=== PATIENT | male | born 1960 | race Caucasian/White ===

== ENCOUNTER → 2021-07-05 09:24 | Outpatient (CLI) | payer OTHER, SELFPAY ==
[2021-07-05 12:23] LABS: Absolute Lymphocyte Count 1.06 X10^3/uL (0.83-4.51); Absolute Neutrophil Count 2.2 X10^3/uL (2.0-7.7); Basophil# 0.03 X10^3/uL; Basophil% 0.7 % (0-1); Eosinophil# 0.06 X10^3/uL; Eosinophils% 1.5 % (0-5); Hematocrit 46.2 % (40-54); Hemoglobin 14.8 g/dL (13.0-16.5); Lymphocyte # 1.06 X10^3/ul (0.83-4.51); Mean Corpuscular Hgb 27.9 pg (27.0-32.0); Mean Platelet Vol. 10.6 fl (6.2-12.0); Monocyte# 0.72 X10^3/uL; Monocyte% 17.7 % (0-10); NRBC Flagged by Analyzer 0 % (0-5); Neutrophil # 2.19 X10^3/uL (2.7-7.7); Neutrophil % 53.9 % (47-70); Platelet Count 187 K/mm3 (150-450); RBC Distribution Width CV 12.8 % (11.6-14.6); Red Blood Count 5.31 M/mm3 (4.6-6.2); White Blood Count 4.1 K/mm3 (4.4-11.0)
[2021-07-05 12:29] LABS: Color, Urine Yellow (Yellow); Glucose, Dipstick Normal (Normal); Ketone-Dipstick Negative (Negative); Leukocyte Esterase-Dipstick Negative /ul (Negative); Nitrite-Dipstick Negative (Negative); Occult Blood-Urine 25 /ul (Negative); Protein-Dipstick 15 mg/dl (Negative); Specific Gravity, Urine 1.025 (1.002-1.030); Urine Bilirubin Dipstick Negative (Negative); Urine Clarity Sl. Cloudy (Clear); Urine Urobilinogen Normal (Normal)
[2021-07-05 12:45] LABS: Vitamin D,25 Hydroxy 21.7 ng/mL
[2021-07-05 12:51] LABS: ALB/GLOB Ratio 0.9 RATIO (0.9-2.4); AST(SGOT) 17 U/L (15-37); Alanine Aminotransfer ALT/SGPT 28 U/L (16-61); Albumin, Serum 3.3 g/dL (3.2-5.0); Alkaline Phosphatase 88 U/L (45-117); Anion Gap 4 (5-15); BUN 15 mg/dL (7-18); BUN/Creat Ratio 13.5 RATIO (10-20); Calcium,Total 9.6 mg/dL (8.5-10.1); Chloride 106 mmol/L (98-107); Cholesterol 152 mg/dL (200); Creatinine, Serum 1.11 mg/dL (0.70-1.30); EST Glomerular Filtration Rate 71 mL/min (>60); Est Glom Filt Rate - Afr Amer 86 mL/min (>60); Globulin 3.7 g/dL (2.2-4.2); Glucose 92 mg/dL (74-106); High Density Lipoprotein 35 mg/dL; Potassium 3.8 mmol/L (3.5-5.1); Sodium Level 139 mmol/L (136-145); Triglycerides 108 mg/dL; Very Low Density Lipoprotein 22 mg/dL (5-40)
[2021-07-05 13:37] LABS: BNP,B-Type NATRIURETIC PEPTIDE 128.5 pg/mL (0-100)
[2021-07-07 17:07] LABS: Red Blood Cell Count Test/G6PD 5.22 x10E6/uL (4.14-5.80)
[2021-07-08 17:50] LABS: G6PD Quant Test 257 (127-427)
== END ==
PROVIDERS: PCP Family Medicine; Referring Provider Nurse Practitioner Family; Visit Provider Nurse Practitioner Family
DX: M62.81 Muscle weakness (generalized) (principal); R53.82 Chronic fatigue, unspecified; C18.9 Malignant neoplasm of colon, unspecified
CPT/HCPCS: 36415; 80053; 80061; 81002; 82306; 82955; 83880; 85025

== ENCOUNTER 2023-02-07 19:33 | Emergency (ER) | payer OTHER, SELFPAY ==
[2023-02-07 19:34] VITALS: BP 146/103; PULSE 44; RESP 16; TEMP 36.1; O2SAT 97
[2023-02-07 19:37] VITALS: BMI 24.3
--- NOTE | 2023-02-07 20:05 | CT_ITS ---
STUDY: CT ABDOMEN AND PELVIS WITH CONTRAST REASON FOR EXAM: Male, 62 years old. right sided abd pain. Colon ca hx w/ mets RADIATION DOSAGE (If Supplied By Facility): CTDIvol = ( 15.73 ) mGy, DLP = ( 840.09 ) mGycm TECHNIQUE: Transaxial images were obtained from the dome of the diaphragm to the symphysis pubis without oral contrast. IV 100mL Isovue-300 was administered. Sagittal and coronal images were reconstructed. Individualized dose optimization techniques were used for this CT. COMPARISON: None. FINDINGS: Large bilateral pleural effusions with bibasilar atelectasis. The visualized portions of the heart are within normal limits. Enlarged lymph nodes in the right epicardial fat pad collectively measuring 2 x 6 cm consistent with metastatic lymphadenopathy. 1 cm mass of decreased attenuation within the dome of the liver which may represent a cyst or a solid mass. The gallbladder is contracted. 2 lesions of decreased attenuation within the spleen measuring 2.5 and 3.0 cm in diameter worrisome for metastatic disease. Normal pancreas. Normal bilateral adrenal glands. Normal right kidney. Normal left kidney. Multiple small renal cysts bilaterally. Normal visualized stomach. Normal small intestine. Suture line in the colon near the splenic flexure. There are surgical clips in the region of the appendix consistent with a prior appendectomy. Normal abdominal aorta. Normal inferior vena cava. Confluent retroperitoneal lymphadenopathy consistent with metastatic disease. At the level of celiac axis is measures 8 x 10 cm. At the level of the renal arteries this measures 4 x 11 cm. At the level aortic bifurcation this measures 4 x 8 cm. Furthermore, there is a 2.0 x 4.5 cm bilobed mass of soft tissue attenuation in the rectovesical space just superior to the seminal vessels consistent with serosal implant. Another 3.0 x 4.5 cm soft tissue mass is seen anteriorly in the abdomen in the midline just inferior to the umbilicus worrisome for omental carcinomatosis. Normal urinary bladder. Normal abdominal wall. Mild levoscoliosis lumbar spine with degenerative disc disease. CT/Abdomen/Pelvis W IV Cont ONLY IMPRESSION: 1. Large bilateral pleural effusions with bibasilar atelectasis. 2. Suture line in the colon near the splenic flexure consistent with prior resection. 3. 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 Electronically Signed: Zhou Rosales MD at 22:51 EDT ,
--- NOTE | 2023-02-07 20:06 | ED.VIS.GI ---
HPI <Dr. Malick Cee MD - Last Filed: 02/07/23 22:27> HPI - GI History of Present Illness Chief Complaint: Abd Pain Detail of Chief Complaint: Right-sided abdominal pain for 7 weeks. Informant: patient and spouse/S.O. 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 He had a MediPort and but then it became infected and had that removed 2 to 3 weeks ago while visiting [facility] in [place]. He also has a known history of A-fib and is on Xarelto. States he had abdominal pain for at least 7 weeks. It is pretty constant. He denies any nausea, vomiting, diarrhea or or fever. No dysuria. Also states the pains going into his back. Initially was treated by cancer center in [place]. But he said he is cannot in a waiting period with them. Prior similar symptoms: Yes Recent Illness/Hospitalization: Yes PFSH <Dr. Malick Cee MD - Last Filed: 02/07/23 22:27> PFS Home Medications oxycodone 10 mg tablet,crush resistant,extended release 12 hr 10 mg PO BID 10 days #20 tabs 02/07/23 [Rx Last Taken Unknown] Allergy/AdvReac Type Severity Reaction Status Date / Time morphine AdvReac Nausea/Vom/ Verified 02/07/23 19:34 Diarrhea Social History Smoking Status: Never smoker ROS <Dr. Malick Cee MD - Last Filed: 02/07/23 22:27> ROS ED ROS Narrative Right-sided abdominal pain. Review of Systems ROS Unobtainable: Denies due to encephalopathy Constitutional Constitutional ED: Denies chills or fever(s) ENT ENT ED: Denies ear pain Cardiovascular Cardiovascular: Denies chest pain Respiratory/Chest Respiratory/Chest: Denies cough or dyspnea Gastrointestinal Gastrointestinal: Reports abdominal pain; Denies constipation, diarrhea, melena, nausea or vomiting Genitourinary Genitourinary ED: Denies dysuria or hematuria Musculoskeletal Musculoskeletal: Reports back pain; Denies arthralgias Integumentary Denies abscess Neurologic Neurologic: Denies headache(s) Psychiatric Psychiatric: Denies anxiety Endocrine Endocrinology: Denies polydipsia Hematologic/Lymphatic Hematologic/Lymphatic: Denies easy bleeding Allergic/Immunologic Allergic/Immunologic ED: Denies mouth swelling EXAM <Dr. Malick Cee MD - Last Filed: 02/07/23 22:27> Physical Exam Narrative Exam Narrative: This is a frail male no acute distress. Vital signs stable afebrile. at bedside. HEENT exam unremarkable. Moist his membranes. Poor dentition. Neck nontender. Lungs clear to auscultation bilaterally. Heart bradycardic rate about 50 no murmur. Chest wall nontender. Abdomen soft nondistended. Firm right upper quadrant abdominal exam that is tender consistent with a mass. No obstruction. Left upper and lower quadrant unremarkable. No McBurney's point tenderness. Moving all 4 extremities. Nontender. No edema. He is thin. Back nontender. Neurologically is awake and alert with no focal motor deficits. Const Vital Signs: 02/07/23 19:34 02/07/23 21:33 Temperature 97.0 F L Temperature Source Temporal Pulse Rate 44 L 76 Respiratory Rate 16 16 Blood Pressure 146/103 H 114/76 Blood Pressure Mean 117 88 Pulse Ox 97 96 Oxygen Delivery Method Room Air Room Air Positive well nourished and well developed; Negative for obese, cachectic, contractures or unkempt General Appearance ED: well developed and NAD; Negative for unkempt, cachectic, contractures or pallor Nutritional Appearance: Negative for cachectic or obese HEENT Reports moist mucous membranes normocephalic and atraumatic; Negative for trauma or tenderness Eyes PERRL and EOMs intact bilaterally General Eye ED: Negative for pale conjunctiva or scleral icterus Neck no lymphadenopathy, supple and no JVD General: Negative for tenderness Carotids: Negative for other Lymph Lymphatic: Negative for other Resp normal respiratory effort and clear to auscultation bilaterally Effort and Inspection: Negative for respiratory distress Auscultation: Negative for rales, rhonchi or wheezes Cardio regular rhythm, S1 normal heart sound, S2 normal heart sound and no murmurs; Negative for regular rate Rate: bradycardia Rhythm: Negative for abnormal rhythm GI non-distended; Negative for non-tender or no masses GI Narrative: Right upper quadrant tenderness with firmness consistent with a mass. There is no distention. No pulsatile mass. Left upper and left lower quadrants are unremarkable. No McBurney's point tenderness. Inspection: Negative for abdominal distention Auscultation: normoactive bowel sounds Palpation: soft, tender, hepatomegaly and mass; Negative for guarding, rigid, hernia, pulsatile mass or rebound tenderness present Back/Spine no CVA tenderness General Back: Negative for CVA tenderness Cervical Spine: Negative for cervical spine tenderness Thoracic Spine / Upper Back: Negative for thoracic spinal tenderness Lumbar Spine / Lower Back: Negative for lumbar spinal tenderness Extremity full ROM General Extremety ED: Negative for edema General Extremity: Negative for edema Neuro CN's II-XII intact bilaterally and moves all extremities Sensorium / Orientation: alert, oriented to person, oriented to place and oriented to time; Negative for orientation impaired or confused Motor Exam: strength 5/5 throughout Psych mental status grossly normal Appearance: Negative for unkempt Attitude: No agitated Mood & Affect: Negative for depressed, anxious or tearful Skin no wounds General Skin Exam: Negative for jaundice or pallor Lesions: no lesions Rashes: no rashes Trauma: Negative for abrasion Nails: Negative for discolored <Dr. Sylvain Hamilton DO - Last Filed: 02/07/23 23:17> Physical Exam Const Vital Signs: 02/07/23 19:34 02/07/23 21:33 Temperature 97.0 F L Temperature Source Temporal Pulse Rate 44 L 76 Respiratory Rate 16 16 Blood Pressure 146/103 H 114/76 Blood Pressure Mean 117 88 Pulse Ox 97 96 Oxygen Delivery Method Room Air Room Air MDM <Dr. 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 Complaining of right upper quadrant pain. Clinically I think this is from his cancer he probably has bone and/or liver mets. CAT scan labs are being obtained. We treated with fentanyl for pain. Zofran. A liter normal saline. Patient doing well at 9:20 PM. He was given a second dose of pain medication. Awaiting his CAT scan. Patient doing well at 10:[address] formal read. I did review it he has bilateral pleural effusions. CAT scan result to be turned over to the overnight physician. At this time I think the patient most likely will be discharged home. He has pain medications at home. Says his pain is well controlled at this time. It was given referrals to our local oncologist since he seems like he wants to change oncology practices because he does not get in good communication with the oncologist and [place] at least according to he and his . History & Record Review Discussion w/independent historian: Patient and Family Lab Data Attestation: I reviewed the patient's lab results. Lab results narrative: CBC shows a white count of 5.9. H&H 12.3 and 37. 250,000 platelets. Compared to prior labs his prior hemoglobin was 14.8 but that was 2 years ago in 2020. Chemistries show sodium 134. Gap of 8. Normal BUN and creatinine. Liver enzymes are unremarkable. Lipase is normal at 21. Labs: Laboratory Results - last 24 hr 02/07/23 02/07/23 20:30 20:30 WBC 5.9 RBC 4.33 L Hgb 12.3 L Hct 37.2 L MCV 85.9 MCH 28.4 MCHC 33.1 RDW Std Deviation 43.2 RDW Coeff of Lara 13.8 Plt Count 250 MPV 8.6 Immature Gran % (Auto) 0.200 Neut % (Auto) 73.2 H Lymph % (Auto) 11.2 L Laurel % (Auto) 13.2 H Eos % (Auto) 1.4 Baso % (Auto) 0.8 Absolute Neuts (auto) 4.3 Absolute Lymphs (auto) 0.66 L Nucleated RBC % 0 Sodium 134 L Potassium 3.7 Chloride 101 Carbon Dioxide 25.0 Anion Gap 8 BUN 17 Creatinine 0.97 Estim Creat Clear Calc 74.43 Est GFR (MDRD) Af Amer 100 Est GFR (MDRD) Non-Af 83 BUN/Creatinine Ratio 17.6 Glucose 108 H Calcium 10.1 Total Bilirubin 0.50 AST 32 ALT 11 L Alkaline Phosphatase 106 Total Protein 7.7 Albumin 2.4 L Globulin 5.3 H Albumin/Globulin Ratio 0.5 L Lipase 21 Radiography Diagnostic Testing: Clinical Impression(s) from Imaging Studies Abdomen/Pelvis CT 02/07/23 20:05 IMPRESSION: 1. Large bilateral pleural effusions with bibasilar atelectasis. 2. Suture line in the colon near the splenic flexure consistent with prior resection. 3. 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 Electronically Signed: Zhou Rosales MD at 22:51 EDT , <Dr. Sylvain Hamilton, DO - Last Filed: 02/07/23 23:17> [facility] Lab Data Labs: Laboratory Results - last 24 hr 02/07/23 02/07/23 20:30 20:30 WBC 5.9 RBC 4.33 L Hgb 12.3 L Hct 37.2 L MCV 85.9 MCH 28.4 MCHC 33.1 RDW Std Deviation 43.2 RDW Coeff of Lara 13.8 Plt Count 250 MPV 8.6 Immature Gran % (Auto) 0.200 Neut % (Auto) 73.2 H Lymph % (Auto) 11.2 L Laurel % (Auto) 13.2 H Eos % (Auto) 1.4 Baso % (Auto) 0.8 Absolute Neuts (auto) 4.3 Absolute Lymphs (auto) 0.66 L Nucleated RBC % 0 Sodium 134 L Potassium 3.7 Chloride 101 Carbon Dioxide 25.0 Anion Gap 8 BUN 17 Creatinine 0.97 Estim Creat Clear Calc 74.43 Est GFR (MDRD) Af Amer 100 Est GFR (MDRD) Non-Af 83 BUN/Creatinine Ratio 17.6 Glucose 108 H Calcium 10.1 Total Bilirubin 0.50 AST 32 ALT 11 L Alkaline Phosphatase 106 Total Protein 7.7 Albumin 2.4 L Globulin 5.3 H Albumin/Globulin Ratio 0.5 L Lipase 21 Radiography Diagnostic Testing: Clinical Impression(s) from Imaging Studies Abdomen/Pelvis CT 02/07/23 20:05 IMPRESSION: 1. Large bilateral pleural effusions with bibasilar atelectasis. 2. Suture line in the colon near the splenic flexure consistent with prior resection. 3. 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 Electronically Signed: Zhou Rosales MD at 22:51 EDT , Treatment and Re-Evaluation :: The patient was signed out to me while awaiting results of his CT scan. The patient CT scan reveals pleural effusions and multiple areas of metastatic cancer. Despite the pleural effusions the patient is able to lie flat and his pulse ox is 98 to 100% on room air and he has no signs of respiratory distress. The metastatic cancer throughout the abdomen is not causing perforation or obstruction. Therefore at this time there is no need for admission secondary to the metastatic cancer. The patient is on 10 mg hydrocodone and I will add 10 mg oxycodone ER twice a day for improved pain control but at this time he is not neutropenic he is not showing infection or obstructive changes and therefore he can be discharged home and follow-up on an outpatient basis. Discharge Plan Triage Chief Complaint: Abd Pain Other Complaint: Back ED Provider: Malick Cee Dx/Rx/DC Orders Clinical Impression: Abdominal pain, History of colon cancer, History of sarcoma, Metastatic cancer Instructions: Abdominal Pain Prescriptions: New oxycodone 10 mg tablet,oral only,ext.rel.12 hr 10 mg PO BID 10 Days Qty: 20 0RF Primary Care Provider: Parish Maravilla Referrals: Tre Fairchild MD [Med Staff - Active Staff] - As soon as possible Olu Guillermo DO [Med Staff - Active Staff] - As soon as possible Parish Maravilla MD [Primary Care Provider] - As soon as possible Activity Restrictions/Additional Instructions: Follow-up with your oncologist as soon as possible. If you would like to change physicians I gave you referrals to both Dr. Olu Guillermo and oncologist with the local [facility] or Dr. Tre Jesus oncologist here with [facility]. Begin taking the oxycodone ER twice a day for improved pain control but continue the hydrocodone throughout the day if needed for breakthrough pain Disposition Disposition: Home, Self Care
[2023-02-07] MEDS: 0.9% Normal Saline 1,000 ML 1000 ML IV (20:29)
[2023-02-07] MEDS: fentaNYL 100 MCG/2 ML Ampul 50 MCG IV ×2 (20:31→21:23)
[2023-02-07] MEDS: Ondansetron 4 MG/2 ML Vial IV ×2 (20:31→23:26)
[2023-02-07 21:01] LABS: Absolute Lymphocyte Count 0.66 X10^3/uL (0.83-4.51); Absolute Neutrophil Count 4.3 X10^3/uL (2.0-7.7); Basophil# 0.05 X10^3/uL; Basophil% 0.8 % (0-1); Eosinophil# 0.08 X10^3/uL; Eosinophils% 1.4 % (0-5); Hematocrit 37.2 % (40-54); Hemoglobin 12.3 g/dL (13.0-16.5); Lymphocyte # 0.66 X10^3/ul (0.83-4.51); Lymphocyte % 11.2 % (19-41); Mean Corp Hgb Conc 33.1 g/dL (32-36); Mean Corpuscular Hgb 28.4 pg (27.0-32.0); Mean Corpuscular Volume 85.9 fL (80-94); Mean Platelet Vol. 8.6 fl (6.2-12.0); Monocyte# 0.78 X10^3/uL; Monocyte% 13.2 % (0-10); NRBC Flagged by Analyzer 0 % (0-5); Neutrophil # 4.32 X10^3/uL (2.7-7.7); Neutrophil % 73.2 % (47-70); Platelet Count 250 K/mm3 (150-450); RBC Distribution Width CV 13.8 % (11.6-14.6); RBC Distribution Width SD 43.2 fl (35.1-43.9); Red Blood Count 4.33 M/mm3 (4.6-6.2); White Blood Count 5.9 K/mm3 (4.4-11.0)
[2023-02-07 21:17] LABS: ALB/GLOB Ratio 0.5 RATIO (0.9-2.4); AST(SGOT) 32 U/L (15-37); Alanine Aminotransfer ALT/SGPT 11 U/L (16-61); Albumin, Serum 2.4 g/dL (3.2-5.0); Alkaline Phosphatase 106 U/L (45-117); Anion Gap 8 (5-15); BUN 17 mg/dL (7-18); BUN/Creat Ratio 17.6 RATIO (10-20); Calcium,Total 10.1 mg/dL (8.5-10.1); Chloride 101 mmol/L (98-107); Creatinine, Serum 0.97 mg/dL (0.70-1.30); EST Glomerular Filtration Rate 83 mL/min (>60); Est Glom Filt Rate - Afr Amer 100 mL/min (>60); Estimated Creatinine Clearance 74.43 ml/min; Globulin 5.3 g/dL (2.2-4.2); Glucose 108 mg/dL (74-106); Lipase 21 U/L (13-75); Potassium 3.7 mmol/L (3.5-5.1); Protein, Total 7.7 g/dL (6.4-8.2); Sodium Level 134 mmol/L (136-145)
[2023-02-07 21:33] VITALS: BP 114/76; PULSE 76; RESP 16; O2SAT 96
[2023-02-07] MEDS: HYDROmorphone 1 MG/ML Syringe IV (23:26)
[2023-02-07 23:41] VITALS: BP 138/89; PULSE 87; RESP 18; O2SAT 96
== END 2023-02-07 23:42 | disposition home or self-care (01) ==
PROVIDERS: Emergency Provider Emergency Medicine; PCP Family Medicine; Visit Provider Emergency Medicine
DX: R10.11 Right upper quadrant pain (principal); C79.89 Secondary malignant neoplasm of other specified sites; I48.91 Unspecified atrial fibrillation; Z79.01 Long term (current) use of anticoagulants; R10.31 Right lower quadrant pain; Z85.038 Personal history of other malignant neoplasm of large intestine
CPT/HCPCS: 74177; 80053; 83690; 85025; 96361; 96374; 96375; 96376; 99283; J7030; Q9967; A4216; J2405

== ENCOUNTER 2023-02-10 17:55 | Inpatient (IN) | payer OTHER, SELFPAY ==
[2023-02-10 17:57] VITALS: BP 139/94; PULSE 127; RESP 14; TEMP 36.7; O2SAT 98; BMI 24.1
[2023-02-10 18:07] VITALS: O2SAT 97
--- NOTE | 2023-02-10 18:18 | EKG12_ITS ---
Test Reason : SOB Blood Pressure : / mmHG Vent. Rate : 130 BPM Atrial Rate : 000 BPM P-R Int : 000 ms QRS Dur : 076 ms QT Int : 314 ms P-R-T Axes : 000 060 -84 degrees QTc Int : 462 ms Atrial fibrillation with rapid ventricular response Nonspecific ST and T wave abnormality Abnormal ECG Confirmed by LATOYA HERNANDEZ, EM ([id number]), digital editor YAMIL CASTELLON ([id number]) on 02/13/2023 10:06:07 A M Referred By: Confirmed By:MUSA KLEIN MD
[2023-02-10] MEDS: 0.9% Normal Saline 1,000 ML 1000 ML IV (18:29)
[2023-02-10] MEDS: Ondansetron 4 MG/2 ML Vial IV (18:29)
[2023-02-10] MEDS: HYDROmorphone 1 MG/ML Syringe IV (18:30)
[2023-02-10 18:34] LABS: Absolute Lymphocyte Count 0.58 X10^3/uL (0.83-4.51); Absolute Neutrophil Count 7.7 X10^3/uL (2.0-7.7); Basophil# 0.03 X10^3/uL; Basophil% 0.3 % (0-1); Eosinophil# 0.03 X10^3/uL; Eosinophils% 0.3 % (0-5); Hematocrit 40.1 % (40-54); Hemoglobin 13.1 g/dL (13.0-16.5); Lymphocyte # 0.58 X10^3/ul (0.83-4.51); Lymphocyte % 6.1 % (19-41); Mean Corp Hgb Conc 32.7 g/dL (32-36); Mean Corpuscular Hgb 27.9 pg (27.0-32.0); Mean Corpuscular Volume 85.5 fL (80-94); Mean Platelet Vol. 9.3 fl (6.2-12.0); Monocyte# 1.15 X10^3/uL; Monocyte% 12.1 % (0-10); NRBC Flagged by Analyzer 0 % (0-5); Neutrophil # 7.68 X10^3/uL (2.7-7.7); Neutrophil % 80.7 % (47-70); POSITIVE DIFFERENTIAL YES; Platelet Count 361 K/mm3 (150-450); RBC Distribution Width CV 14.3 % (11.6-14.6); RBC Distribution Width SD 43.8 fl (35.1-43.9); Red Blood Count 4.69 M/mm3 (4.6-6.2); White Blood Count 9.5 K/mm3 (4.4-11.0)
--- NOTE | 2023-02-10 18:41 | EDS_ITS ---
HPI History of Present Illness Chief Complaint: Shortness of Breath Informant: patient, spouse/S.O. and family Narrative Narrative: Patient presents with abdominal pain and dyspnea. Patient states that he knows it is the cancer. 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 A few months later he was diagnosed with colon cancer. He did have 2 surgeries and removed about a foot of his colon. He had chemotherapy at that time. It sounds like he had a repeat chemotherapy a few months ago. He was initially being seen at a [facility]. He is now being seen in [facility]. But he has not seen them for at least 2 months. He had an infected med port that was taken out at a different hospital. He has been having abdominal pain probably since 2020. He was here just recently for this. He did have scan of the abdomen. This also showed some pleural effusions. He states his dyspnea is getting worse. His abdominal pain over continues. He is really not eating or drinking because he just has no appetite. He has lost 60 pounds since the beginning of this but they do not know how much is in the last month or so. It sounds like he is just getting weaker and weaker and cannot eat or drink. They do not know what the plan for the cancer is. It sounds like he had surgery and 2 rounds of chemo and it is not helping. But they have not contacted their oncology team to discuss this. Although is not on his med list, patient is on Xarelto and taking it daily for a history of atrial fibrillation. [facility] Medical History A-fib Colon cancer metastasized to multiple sites [facility] Home Medications oxycodone 5 mg capsule 5 mg PO Q4H PRN pain 8 days #30 caps 02/08/23 [Rx Last Taken Unknown] digoxin 125 mcg (0.125 mg) tablet 125 mcg PO QODAY 02/10/23 [History Last Taken Unknown] hydrocodone 10 mg-acetaminophen 325 mg tablet 1 tab PO Q4H PRN PRN Pain 02/10/23 [History Last Taken Unknown] metoprolol tartrate 50 mg tablet 50 mg PO DAILY 02/10/23 [History Last Taken Unknown] omeprazole 20 mg capsule,delayed release 40 mg PO DAILY 02/10/23 [History Last Taken Unknown] rivaroxaban 15 mg tablet (Xarelto) 15 mg PO DAILY 02/10/23 [History Last Taken Unknown] Allergy/AdvReac Type Severity Reaction Status Date / Time morphine AdvReac Nausea/Vom/ Verified 02/10/23 18:05 Diarrhea Social History Smoking Status: Never smoker ROS ROS ED ROS Narrative A complete review of systems was performed and is negative except as documented in the history of present illness. Some specific details below. Constitutional: No recent fevers or chills. EYE: No visual complaints or pain. ENT: No difficulty swallowing. No swelling. No pain. CV: No chest pain or palpitations. Respiratory: See history of present illness. He is not coughing. No hemoptysis. GI: Please see history of present illness. Still his pain is toward the right upper quadrant and that is his typical location : No frequency dysuria or hematuria. Musculoskeletal: No recent trauma. No pains. Skin: No rash. Nondiaphoretic. Neuro: No weakness or numbness. Endocrine: No polyuria or polydipsia. EXAM Physical Exam Narrative Exam Narrative: CONSTITUTIONAL: Patient is nontoxic in appearance. The patient looks comfortable. HEENT: No notable trauma. Mucous membranes do look dry. No sinus tenderness. No indication of pain with swallowing. EYES: No conjunctival injection. No proptosis. CARDIOVASCULAR: Tachycardic rate. Irregular rhythm. No notable murmur. No JVD. RESPIRATORY: No respiratory distress. Breathing is unlabored. I do not hear wheezes. His saturations are normal while sitting still in bed. He does have a few decreased breath sounds toward the bases. GASTROINTESTINAL: Not distended. Bowel sounds are normal. Mild right upper quadrant tenderness. No guarding. No rebound. No palpable mass. No bruit. GENITOURINARY: No tenderness over the bladder. No CVA tenderness. MUSCULOSKELETAL: Atraumatic. No peripheral edema. No cord. No tenderness along the deep venous system. No asymmetry. NEUROLOGICAL: Patient is alert and appropriate. No focal deficit noted. SKIN: No noted rashes. No diaphoresis. PSYCHIATRIC: Patient is calm. Mood is appropriate. Const Vital Signs: 02/10/23 17:57 02/10/23 18:07 02/10/23 20:00 Temperature 98.1 F Temperature Source Temporal Pulse Rate 127 H 113 H Respiratory Rate 14 15 Respiratory Effort Normal Non-Labored Respiratory Depth Normal Respiratory Pattern Normal Blood Pressure 139/94 H 133/83 H Blood Pressure Mean 109 99 Pulse Ox 98 97 Oxygen Delivery Method Room Air Room Air Room Air MDM MDM MDM Narrative Medical decision making narrative: Patient CBC shows no marked abnormalities. Patient's electrolytes show some mildly low sodium and slightly elevated BUN to creatinine ratio. Patient's liver function test showed no marked abnormalities. Albumin was low. Just mild elevation of AST and alk phos. Urine showed a few red cells but no sign of infection. Lactic acid was up just slightly at 2.2. My independent interpretation the patient's chest x-ray really looked pretty normal despite reading of effusions from a CT abdomen just a few days ago. With his abdominal pain and dyspnea we did do CT scan of his chest. There is no PE or dissection. But there were bilateral large effusions with some compressive atelectasis. There is sign of diffuse metastatic disease. Possible slight ileus. No obstruction. We walked the patient. He walked a very short distance and desaturation to 88%. He was rather winded. He was tired getting back to bed but his saturations did return. With his desaturations, weakness, weight loss, not eating and drinking, I do think coming in the hospital is appropriate. He may benefit from thoracentesis. But we will have to hold his Xarelto. His heart rate is a little bit better with fluids but we will add metoprolol. I find out that he is on metoprolol and digoxin so a digoxin level will also be sent. We did discuss with him his and his children the concept of palliative care and I think they are open to this. He would like to talk to somebody to see if chemotherapy or any treatment would help the cancer or it would just make him weaker. I discussed the case with the hospitalist who saw the patient in the emergency department. Lab Data Attestation: I reviewed the patient's lab results. Labs: Laboratory Results - last 24 hr 02/10/23 02/10/23 02/10/23 17:27 17:27 18:24 WBC 9.5 RBC 4.69 Hgb 13.1 Hct 40.1 MCV 85.5 MCH 27.9 MCHC 32.7 RDW Std Deviation 43.8 RDW Coeff of Lara 14.3 Plt Count 361 MPV 9.3 Immature Gran % (Auto) 0.500 Neut % (Auto) 80.7 H Lymph % (Auto) 6.1 L [place] % (Auto) 12.1 H Eos % (Auto) 0.3 Baso % (Auto) 0.3 Absolute Neuts (auto) 7.7 Absolute Lymphs (auto) 0.58 L Nucleated RBC % 0 Differential Comment SEE COMMENT Platelet Estimate ADEQUATE RBC Morphology NORM C+C Anisocytosis RARE Sodium 131 L Potassium 3.9 Chloride 97 L Carbon Dioxide 24.0 Anion Gap 10 BUN 19 H Creatinine 0.91 Estim Creat Clear Calc 79.34 Est GFR (MDRD) Af Amer 108 Est GFR (MDRD) Non-Af 89 BUN/Creatinine Ratio 20.9 H Glucose 115 H Lactic Acid 2.2 H* Calcium 10.3 H Total Bilirubin 0.60 AST 53 H ALT 12 L Alkaline Phosphatase 131 H Troponin I High Sens 6 Total Protein 8.2 Albumin 2.4 L Globulin 5.8 H Albumin/Globulin Ratio 0.4 L Urine Color Urine Clarity Urine pH Ur Specific [place] Urine Protein Urine Glucose (UA) Urine Ketones Urine Occult Blood Urine Nitrite Urine Bilirubin Urine Urobilinogen Ur Leukocyte Esterase Urine RBC Urine WBC Ur Squamous Epith Cells Urine Bacteria Urine Mucus 02/10/23 20:55 WBC RBC Hgb Hct MCV MCH MCHC RDW Std Deviation RDW Coeff of Lara Plt Count MPV Immature Gran % (Auto) Neut % (Auto) Lymph % (Auto) [place] % (Auto) Eos % (Auto) Baso % (Auto) Absolute Neuts (auto) Absolute Lymphs (auto) Nucleated RBC % Differential Comment Platelet Estimate RBC Morphology Anisocytosis Sodium Potassium Chloride Carbon Dioxide Anion Gap BUN Creatinine Estim Creat Clear Calc Est GFR (MDRD) Af Amer Est GFR (MDRD) Non-Af BUN/Creatinine Ratio Glucose Lactic Acid Calcium Total Bilirubin AST ALT Alkaline Phosphatase Troponin I High Sens Total Protein Albumin Globulin Albumin/Globulin Ratio Urine Color Yellow Urine Clarity Clear Urine pH 5.0 Ur Specific [place] 1.020 Urine Protein 100 H Urine Glucose (UA) Normal Urine Ketones 50 H Urine Occult Blood 250 H Urine Nitrite Negative Urine Bilirubin Negative Urine Urobilinogen Normal Ur Leukocyte Esterase 25 H Urine RBC 10-25 SEEN Urine WBC 0-5 SEEN Ur Squamous Epith Cells 0 SEEN Urine Bacteria RARE Urine Mucus 0 SEEN Radiography Diagnostic Testing: Clinical Impression(s) from Imaging Studies Chest X-Ray 02/10/23 18:50 IMPRESSION: 1. Normal x-ray examination of the chest. Electronically Signed: You Webber MD at 19:04 EDT , Chest/Abdomen/Pelvis CTA 02/10/23 19:25 IMPRESSION: Large bilateral pleural effusions with compressive atelectasis in the lower lobes. Extensive mediastinal and supraclavicular and left axillary adenopathy. Extensive retroperitoneal, mesenteric, and peripancreatic adenopathy as well as solid nodule within the spleen possibly metastatic. Postsurgical changes status post partial colectomy. Diffuse ileus with fecal retention in colon. Concentric thickening of the colon at the level of the anastomosis of the uncertain etiology. Cannot exclude recurrent or residual disease neoplasm versus inflammatory change or spasm. Clinical correlation recommended.. Electronically Signed: Deng Sheikh MD at 20:28 EDT , Discharge Plan Dx/Rx/DC Orders Clinical Impression: Hypoxia, Abdominal pain, Bilateral pleural effusion, Colon cancer, Abnormal weight loss Disposition Disposition: Acute [facility] Hospital [facility]
--- NOTE | 2023-02-10 18:50 | RAD_ITS ---
STUDY: X-RAY CHEST REASON FOR EXAM: Male, 62 years old. SOB, effusionCOMPLAINS OF DYSPNEA, WORSENING ABD PAIN. PT HAS COLON CA, HERE RECENTLY FOR ABD PAIN TECHNIQUE: radiograph of the chest COMPARISON: None. FINDINGS: LUNGS: The lungs are clear. There is no pneumothorax. MEDIASTINUM and CARDIO-VASCULAR STRUCTURES: The heart is normal size. Upper mediastinal contours are normal. PLEURA: There are no pleural effusions or calcified plaques. There is no free abdominal gas under the diaphragms. BONES and SOFT TISSUES: Skeleton is unremarkable and osseous structures are intact. LINES and DEVICES: PICC line is in the left upper extremity terminating in the lower SVC. RAD/Chest 1 View (Portable) IMPRESSION: 1. Normal x-ray examination of the chest. Electronically Signed: You Webber MD at 19:04 EDT ,
[2023-02-10 18:54] LABS: ALB/GLOB Ratio 0.4 RATIO (0.9-2.4); AST(SGOT) 53 U/L (15-37); Alanine Aminotransfer ALT/SGPT 12 U/L (16-61); Albumin, Serum 2.4 g/dL (3.2-5.0); Alkaline Phosphatase 131 U/L (45-117); Anion Gap 10 (5-15); BUN 19 mg/dL (7-18); BUN/Creat Ratio 20.9 RATIO (10-20); Calcium,Total 10.3 mg/dL (8.5-10.1); Chloride 97 mmol/L (98-107); Creatinine, Serum 0.91 mg/dL (0.70-1.30); EST Glomerular Filtration Rate 89 mL/min (>60); Est Glom Filt Rate - Afr Amer 108 mL/min (>60); Estimated Creatinine Clearance 79.34 ml/min; Globulin 5.8 g/dL (2.2-4.2); Glucose 115 mg/dL (74-106); Potassium 3.9 mmol/L (3.5-5.1); Protein, Total 8.2 g/dL (6.4-8.2); Sodium Level 131 mmol/L (136-145); Troponin-I HS 6 pg/mL (3.0-78.0)
[2023-02-10 19:08] LABS: Differential Indicated SCAN CRITERIA MET
[2023-02-10 19:09] LABS: Anisocytosis RARE; Platelet Estimate ADEQUATE (ADEQ); Red Cell Morphology NORM C+C NORMAL (NORM C&C)
--- NOTE | 2023-02-10 19:25 | CT_ITS ---
INDICATION: SOB, effusion, abd pain EXAMINATION: CTA CHEST, ABDOMEN AND PELVIS WITH CONTRAST - TECHNIQUE: A CTA of the chest, abdomen, and pelvis is obtained with sagittal and coronal reconstructed MIP views. Three-dimensional surface rendered sequence of the thoracic and abdominal aorta was obtained. A radiation dose optimization technique was used for this scan. mL of [id number]. Oral contrast: None. COMPARISON: February 07, 2023 FINDINGS: CT CHEST: THORACIC AORTA: No atheromatous disease, no aneurysmal changes or dissection. ABDOMINAL AORTA: No aneurysm or dissection. No significant atheromatous disease. The iliac arteries are unremarkable. LUNGS: There are large bilateral pleural effusions with compressive atelectasis in the lower lobes.. MEDIASTINUM: The thyroid gland is normal. No hilar adenopathy. There are multiple enlarged nodes within the anterior superior mediastinum. There are also bilateral enlarged supraclavicular nodes larger on the left. Left perithyroidal adenopathy is observed. There are enlarged nodes in the epicardial fat on the right and internal mammary adenopathy bilaterally. Left axillary adenopathy is observed HEART: Heart is normal size. No pericardial effusion. No CAD. CT ABDOMEN AND PELVIS: LIVER: Liver is enlarged and fatty infiltrated. No space-occupying lesions or dilated ducts.. GALLBLADDER: The CBD is normal. Normal gallbladder. SPLEEN: There is a nodule within the spleen measuring approximately 2.3 x 3 cm PANCREAS: No masses or inflammation. ADRENAL GLANDS: Normal. KIDNEYS AND URETERS: No evidence for renal obstruction. There are bilateral renal simple cysts which will not require additional imaging STOMACH: Normal. SMALL BOWEL: Nonspecific ileus.. MESENTERY: No mesenteric inflammation. No ascites. COLON: Postsurgical changes status post partial resection of the left:. Diffusely distended fecal filled colon. No significant diverticular disease or evidence for acute diverticulitis.. There does appear to be concentric thickening of the mcnally of the bowel at the colonic gas anastomosis left upper quadrant of indeterminate etiology. Cannot definitively exclude recurrent or residual neoplasm versus inflammatory changes. Clinical correlation recommended APPENDIX: No evidence for acute appendicitis.. IVC: Normal. RETROPERITONEUM: There is extensive retroperitoneal adenopathy as well as multiple peripancreatic and mesenteric nodes PELVIC STRUCTURES: Normal bladder. Nonspecific enlargement of prostate SOFT TISSUES ABDOMEN: The anterior abdominal wall is normal. SOFT TISSUE CHEST: The extrathoracic soft tissues are normal. BONES: Dorsal spine demonstrates mild degenerative change. CT/CTA Chst, Abd, Pel W and/or WO IMPRESSION: Large bilateral pleural effusions with compressive atelectasis in the lower lobes. Extensive mediastinal and supraclavicular and left axillary adenopathy. Extensive retroperitoneal, mesenteric, and peripancreatic adenopathy as well as solid nodule within the spleen possibly metastatic. Postsurgical changes status post partial colectomy. Diffuse ileus with fecal retention in colon. Concentric thickening of the colon at the level of the anastomosis of the uncertain etiology. Cannot exclude recurrent or residual disease neoplasm versus inflammatory change or spasm. Clinical correlation recommended.. Electronically Signed: Deng Sheikh MD at 20:28 EDT ,
[2023-02-10 19:41] LABS: Lactic Acid 2.2 mmol/L (0.4-1.9)
[2023-02-10 20:00] VITALS: BP 133/83; PULSE 113; RESP 15; O2SAT 97
[2023-02-10 21:04] LABS: Mucous, Urine 0 SEEN /hpf (<or=2+); Squamous Epithelial Cells - UA 0 SEEN /hpf (0-5)
[2023-02-10 21:09] LABS: Color, Urine Yellow (Yellow); Glucose, Dipstick Normal (Normal); Ketone-Dipstick 50 mg/dl (Negative); Leukocyte Esterase-Dipstick 25 /ul (Negative); Nitrite-Dipstick Negative (Negative); Occult Blood-Urine 250 /ul (Negative); Protein-Dipstick 100 mg/dl (Negative); Urine Bilirubin Dipstick Negative (Negative); Urine Clarity Clear (Clear); Urine Urobilinogen Normal (Normal)
[2023-02-10 21:16] LABS: Bacteria RARE /hpf (None Seen); Red Blood Cells-Urine 10-25 SEEN /hpf (0-5); White Blood Cells 0-5 SEEN /hpf (0-5)
[2023-02-10] MEDS: HYDROmorphone 0.5 MG/0.5 ML SYRINGE IV ×2 (21:22→22:51)
[2023-02-10 21:27] VITALS: O2SAT 97
--- NOTE | 2023-02-10 21:50 | ED.RN ---
Pt tearful when this RN at bedside, states I just can't take the pain anymore, I'm scared because it's gotten so much worse the past several days. This RN mentioned Palliative care, pt verbalizes interest. States the pain is my biggest worry. This RN also spoke to , daughters and sons regarding palliative/hospice care. They voice interest in assistance with pain control and home visits by medical staff. updated.
[2023-02-10] MEDS: Metoprolol Tartrate 5 MG/5 ML Vial IV (22:07)
[2023-02-10 22:20] VITALS: BP 128/81; PULSE 101; RESP 16; TEMP 36.6; O2SAT 96
--- NOTE | 2023-02-10 22:20 | PCM.HP.STD ---
HPI - General General Date of Admission: 02/10/23 Date of Service: 02/10/23 Chief Complaint: Abd pain and shortness of breath HPI Narrative KISHAN NORTH, is a 62 M who presents with worsening abdominal pain and dyspnea. Patient has sarcoma removed from somewhere on his left side in March 2021.? A few months later he was diagnosed with colon cancer.? He did have 2 surgeries for resection of colon cancer. He then went to a center in [place] and received chemotherapy beginning about 6 months ago, however his cancer burden worsened and he stopped going to center in [place]. He also recently had an infected port that was removed. He has not followed with them in last couple months. At baseline he has chronic pain that is also in his back. He has not had bowel movement for 3 days. It is a struggle to have BM at baseline. He is on oxy and Hydrocodone at home for pain. He has 4/10 pain right now. He also has shortness of breath which comes very quickly with exertion and therefore he can't move around much. Does not have urinary complaints. Due to abdominal pain and constipation he is eating much less. Tonight he was feeling very short of breath and said his breathing was shallow. They initially started out to hospital with Anthropometrist, but then they transferred to ambulance because of his breathing issues. The patient does seem like he would be interested in hospice and realizes that other therapies have been exhausted. He lost a child to colon cancer at 27 years old. Pt as 60 when diagnosed with colon ca. In ED the labs showed mildly lower sodium [address]actic acid [address].2. [address] w/ pleural effusions and large tumor burden through peritoneum, metastatic. UA showed ketones. [facility] Medical History A-fib Colon cancer metastasized to multiple sites [facility] Home Medications oxycodone 5 mg capsule 5 mg PO Q4H PRN pain 8 days #30 caps 02/08/23 [Rx Last Taken Unknown] digoxin 125 mcg (0.125 mg) tablet 125 mcg PO QODAY 02/10/23 [History Last Taken Unknown] hydrocodone 10 mg-acetaminophen 325 mg tablet 1 tab PO Q4H PRN PRN Pain 02/10/23 [History Last Taken Unknown] metoprolol tartrate 50 mg tablet 50 mg PO DAILY 02/10/23 [History Last Taken Unknown] omeprazole 20 mg capsule,delayed release 40 mg PO DAILY 02/10/23 [History Last Taken Unknown] rivaroxaban 15 mg tablet (Xarelto) 15 mg PO DAILY 02/10/23 [History Last Taken Unknown] Allergy/AdvReac Type Severity Reaction Status Date / Time morphine AdvReac Nausea/Vom/ Verified 02/10/23 18:05 Diarrhea Social History Smoking Status: Never smoker Vital Signs Vital Signs Vital Signs: 02/10/23 17:57 02/10/23 18:07 02/10/23 20:00 Temperature 98.1 F Temperature Source Temporal Pulse Rate 127 H 113 H Respiratory Rate 14 15 Respiratory Effort Normal Non-Labored Respiratory Depth Normal Respiratory Pattern Normal Blood Pressure 139/94 H 133/83 H Blood Pressure Mean 109 99 Pulse Ox 98 97 Oxygen Delivery Method Room Air Room Air Room Air 02/10/23 22:20 Temperature 97.8 F Temperature Source Temporal Pulse Rate 101 H Respiratory Rate 16 Respiratory Effort Respiratory Depth Respiratory Pattern Blood Pressure 128/81 H Blood Pressure Mean 96 Pulse Ox 96 Oxygen Delivery Method Room Air Weight Weight: 158 lb 15.253 oz Body Mass Index (BMI) 24.1 Physical Exam Const alert HEENT normocephalic and head/scalp atraumatic Neck no lymphadenopathy Resp normal respiratory effort Cardio regular rate and regular rhythm GI soft to palpation GI Narrative: Mildly tender on the right side under liver. There is no hepatomegaly. There is no appreciable distension. Extremity normal to inspection Results Medical Records Data Attestation: I reviewed the patient's medical records Lab / Micro Data Attestation: I reviewed the patient's lab results. Result Diagrams: 02/10/23 17:27 02/10/23 17:27 Labs: Laboratory Results - last 24 hr 02/10/23 17:27: WBC 9.5, RBC 4.69, Hgb 13.1, Hct 40.1, MCV 85.5, MCH 27.9, MCHC 32.7, RDW Std Deviation 43.8, RDW Coeff of Lara 14.3, Plt Count 361, MPV 9.3, Immature Gran % (Auto) 0.500, Neut % (Auto) 80.7 H, Lymph % (Auto) 6.1 L, Webb % (Auto) 12.1 H, Eos % (Auto) 0.3, Baso % (Auto) 0.3, Absolute Neuts (auto) 7.7, Absolute Lymphs (auto) 0.58 L, Nucleated RBC % 0, Differential Comment SEE COMMENT, Platelet Estimate ADEQUATE, RBC Morphology NORM C+C, Anisocytosis RARE 02/10/23 17:27: Sodium 131 L, Potassium 3.9, Chloride 97 L, Carbon Dioxide 24.0, Anion Gap 10, BUN 19 H, Creatinine 0.91, Estim Creat Clear Calc 79.34, Est GFR (MDRD) Af Amer 108, Est GFR (MDRD) Non-Af 89, BUN/Creatinine Ratio 20.9 H, Glucose 115 H, Calcium 10.3 H, Total Bilirubin 0.60, AST 53 H, ALT 12 L, Alkaline Phosphatase 131 H, Troponin I High Sens 6, Total Protein 8.2, Albumin 2.4 L, Globulin 5.8 H, Albumin/Globulin Ratio 0.4 L 02/10/23 18:24: Lactic Acid 2.2 H* 02/10/23 20:55: Urine Color Yellow, Urine Clarity Clear, Urine pH 5.0, Ur Specific [place] 1.020, Urine Protein 100 H, Urine Glucose (UA) Normal, Urine Ketones 50 H, Urine Occult Blood 250 H, Urine Nitrite Negative, Urine Bilirubin Negative, Urine Urobilinogen Normal, Ur Leukocyte Esterase 25 H, Urine RBC 10-25 SEEN, Urine WBC 0-5 SEEN, Ur Squamous Epith Cells 0 SEEN, Urine Bacteria RARE, Urine Mucus 0 SEEN Radiology Impression Chest X-Ray 02/10/23 18:50 IMPRESSION: 1. Normal x-ray examination of the chest. Electronically Signed: You Webber MD at 19:04 EDT , Chest/Abdomen/Pelvis CTA 02/10/23 19:25 IMPRESSION: Large bilateral pleural effusions with compressive atelectasis in the lower lobes. Extensive mediastinal and supraclavicular and left axillary adenopathy. Extensive retroperitoneal, mesenteric, and peripancreatic adenopathy as well as solid nodule within the spleen possibly metastatic. Postsurgical changes status post partial colectomy. Diffuse ileus with fecal retention in colon. Concentric thickening of the colon at the level of the anastomosis of the uncertain etiology. Cannot exclude recurrent or residual disease neoplasm versus inflammatory change or spasm. Clinical correlation recommended.. Electronically Signed: Deng Sheikh MD at 20:28 EDT Reading Location ID and State: [facility] / [place] , Service support , Assessment & Plan Assessment/Plan (1) Abdominal pain: (2) History of colon cancer: (3) History of sarcoma: (4) Bilateral pleural effusion: (5) Hypoxia: (6) Colon cancer: (7) Abnormal weight loss: PLAN: Plan Metastatic colon cancer Resume norco, dilaudid, and start Senna and daily Miralax. MOst likely beyond surgical management. Will consult case management to discuss hospice. Will run IV fluid x 12 hours The patient would NOT want resuscitation measures and is DNRCC Afib EKG reviewed Continue short course of fluids, resume Lopressor BID 50 mg Resume Xarelto Acute hypoxia with b/l Effusions - Consult Pulmonary regarding need for thoracentesis - No oxygen currently needed at baseline. Hyponatremia - Should improve with fluids - Trend BMP Xarelto for prophylaxis DNRCC and d/w patient and family Charges/Coding Visit Charges Inpatient E&M: 51709 Init Hosp L3
--- NOTE | 2023-02-10 22:25 | ED.RN ---
Per and pt, medical staff has been unable to draw blood from PICC recently and it flushes fine. Both lumens flushed per pt request, flush well but no blood return noted. Curos caps applied.
[2023-02-10 22:31] LABS: Reflex Lactate? Y
[2023-02-10 22:54] LABS: Lactic Acid 1.9 mmol/L (0.4-1.9)
[2023-02-10 23:07] LABS: Digoxin Level 0.45 ng/mL (0.80-2.00)
[2023-02-11] VITALS (10 sets, daily range): BP systolic 117–136; BP diastolic 73–101; PULSE 82–128; RESP 18–20; TEMP 36.5–36.9; O2SAT 95–98; BMI 23.4
--- NOTE | 2023-02-11 | FLU_PTH ---
PATIENT: KISHAN NORTH LOC: [facility] U#:[id number] AGE/SX: 62/M ROOM: [facility] RE02/11/[address]: Dr. Tarik Bravo MD : 1960 BED: 1 DIS: 02/13/2023 SPEC #: [id number] RECD: 02/11/23 14:26 STATUS: [facility] REQ #: [id number] HEIDE: 02/11/23 00:[address]: Tarik Bravo DEPT: CYTOLOGY RECD BY: Helga Mckay ENTERED: 02/12/23 08:52 SP TYPE: Fluid OTHR DR: MD Dr. Daquan Mesa DO Dr. Lee Ann Baggott, MD Dr. Phillip Teague, MD Dr. Ryan Burkholder, MD Dr. Tanmay Panchabhai, MD Christina Muller, SENIOR PHYSICIAN-C Tissues: THORACIC FLUID Procedures: Special Stain Group II Surgery Specimen Level IV Cytospin Fluid HEADER OPERATION: Thoracentesis, right chest PRE-OP DIAGNOSIS: Right pleural effusion TISSUE SUBMITTED: Thoracentesis fluid for cytology DIAGNOSIS CYTOLOGY Thoracentesis fluid for cytology (cytospin and cell block): Negative for malignant cells. See comment. CLAY:carole 02/13/2023 COMMENT Clinical correlation and appropriate follow up are necessary. CYTOLOGY STUDY Slides are reviewed. CYTOLOGY GROSS Received is 50 ml of hazy yellow fluid labeled with the patient's name and and designated per the requisition as thoracentesis. Submitted for cytology preparation including cell block. / carole 02/12/2023 TC:5 CPT: 57864, 91579
[2023-02-11] MEDS: Senna Tablet 1 TABLET PO ×2 (00:50→10:37)
[2023-02-11] MEDS: 0.9% Saline Lock 10 ML Syringe IV ×2 (00:51→21:47)
[2023-02-11] MEDS: 0.9% Normal Saline 1,000 ML 100 ML IV ×2 (00:53→10:34)
[2023-02-11] MEDS: Metoprolol Tartrate 25 MG Tablet 12.5 MG PO (01:19)
[2023-02-11] MEDS: HYDROmorphone 0.5 MG/0.5 ML SYRINGE IV ×2 (01:20→10:33)
[2023-02-11] MEDS: HYDROcodone Bitartrate/Apap 5/325 Tablet PO ×4 (05:33→17:49)
[2023-02-11 06:46] LABS: Absolute Lymphocyte Count 0.52 X10^3/uL (0.83-4.51); Absolute Neutrophil Count 5.5 X10^3/uL (2.0-7.7); Basophil# 0.06 X10^3/uL; Basophil% 0.8 % (0-1); Eosinophil# 0.06 X10^3/uL; Eosinophils% 0.8 % (0-5); Hematocrit 36.5 % (40-54); Hemoglobin 11.8 g/dL (13.0-16.5); Lymphocyte # 0.52 X10^3/ul (0.83-4.51); Lymphocyte % 7.3 % (19-41); Mean Corp Hgb Conc 32.3 g/dL (32-36); Mean Corpuscular Volume 86.5 fL (80-94); Mean Platelet Vol. 8.6 fl (6.2-12.0); Monocyte# 0.97 X10^3/uL; Monocyte% 13.7 % (0-10); NRBC Flagged by Analyzer 0 % (0-5); Neutrophil # 5.46 X10^3/uL (2.7-7.7); POSITIVE DIFFERENTIAL YES; Platelet Count 277 K/mm3 (150-450); RBC Distribution Width CV 14.4 % (11.6-14.6); RBC Distribution Width SD 45.7 fl (35.1-43.9); Red Blood Count 4.22 M/mm3 (4.6-6.2); White Blood Count 7.1 K/mm3 (4.4-11.0)
[2023-02-11 06:54] LABS: Differential Indicated SCAN CRITERIA MET
[2023-02-11 07:31] LABS: Anion Gap 6 (5-15); BUN 22 mg/dL (7-18); BUN/Creat Ratio 26.2 RATIO (10-20); Calcium,Total 9.8 mg/dL (8.5-10.1); Chloride 101 mmol/L (98-107); Creatinine, Serum 0.84 mg/dL (0.70-1.30); EST Glomerular Filtration Rate 98 mL/min (>60); Est Glom Filt Rate - Afr Amer 118 mL/min (>60); Estimated Creatinine Clearance 85.95 ml/min; Glucose 106 mg/dL (74-106); Sodium Level 132 mmol/L (136-145)
[2023-02-11 07:39] LABS: Differential Comment SCANNED
--- NOTE | 2023-02-11 07:49 | PCM.PN.HOSP ---
Reason for Visit Reason for Visit: Diagnoses Malignant neoplasm of colon, unspecified (02/10/23) Pleural effusion, not elsewhere classified (02/10/23) Hypoxemia (02/10/23) Unspecified abdominal pain (02/10/23) Abnormal weight loss (02/10/23) Personal history of other malignant neoplasm of large intestine (02/10/23) Personal history of malignant neoplasm of soft tissue (02/10/23) Subjective Subjective Patient is 62-year-old gentleman with history of metastatic colon cancer who presented with shortness of breath imaging studies obtained on admission did show Large bilateral pleural effusions with compressive atelectasis in the lower lobes. Extensive mediastinal and supraclavicular and left axillary adenopathy. Extensive retroperitoneal, mesenteric, and peripancreatic adenopathy as well as solid nodule within the spleen possibly metastatic. Objective Data Objective Data Vital Signs: Vital Signs Temp Pulse Resp BP Pulse Ox O2 Del Method 97.7 F L 117 H 20 H 136/83 H 95 Room Air 02/11/23 06:20 02/11/23 06:20 02/11/23 06:20 02/11/23 06:20 02/11/23 06:20 02/11/23 06:20 Oxygen Delivery Method Room Air Weight: 70 kg Body Mass Index (BMI) 23.4 Intake & Output: Intake and Output for Last 24 Hours 02/09/23 02/10/23 02/11/23 23:59 23:59 23:59 Intake Total 1000 / 1000 200 / 200 Balance 1000 / 1000 200 / 200 Lab / Micro Data Result Diagrams: 02/11/23 06:33 02/11/23 06:33 Labs: Laboratory Results - last 24 hr 02/10/23 17:27: WBC 9.5, RBC 4.69, Hgb 13.1, Hct 40.1, MCV 85.5, MCH 27.9, MCHC 32.7, RDW Std Deviation 43.8, RDW Coeff of Lara 14.3, Plt Count 361, MPV 9.3, Immature Gran % (Auto) 0.500, Neut % (Auto) 80.7 H, Lymph % (Auto) 6.1 L, [place] % (Auto) 12.1 H, Eos % (Auto) 0.3, Baso % (Auto) 0.3, Absolute Neuts (auto) 7.7, Absolute Lymphs (auto) 0.58 L, Nucleated RBC % 0, Differential Comment SEE COMMENT, Platelet Estimate ADEQUATE, RBC Morphology NORM C+C, Anisocytosis RARE 02/10/23 17:27: Sodium 131 L, Potassium 3.9, Chloride 97 L, Carbon Dioxide 24.0, Anion Gap 10, BUN 19 H, Creatinine 0.91, Estim Creat Clear Calc 79.34, Est GFR (MDRD) Af Amer 108, Est GFR (MDRD) Non-Af 89, BUN/Creatinine Ratio 20.9 H, Glucose 115 H, Calcium 10.3 H, Total Bilirubin 0.60, AST 53 H, ALT 12 L, Alkaline Phosphatase 131 H, Troponin I High Sens 6, Total Protein 8.2, Albumin 2.4 L, Globulin 5.8 H, Albumin/Globulin Ratio 0.4 L 02/10/23 18:24: Lactic Acid 2.2 H* 02/10/23 20:55: Urine Color Yellow, Urine Clarity Clear, Urine pH 5.0, Ur Specific [place] 1.020, Urine Protein 100 H, Urine Glucose (UA) Normal, Urine Ketones 50 H, Urine Occult Blood 250 H, Urine Nitrite Negative, Urine Bilirubin Negative, Urine Urobilinogen Normal, Ur Leukocyte Esterase 25 H, Urine RBC 10-25 SEEN, Urine WBC 0-5 SEEN, Ur Squamous Epith Cells 0 SEEN, Urine Bacteria RARE, Urine Mucus 0 SEEN 02/10/23 22:10: Digoxin 0.45 L 02/10/23 22:10: Lactic Acid 1.9 02/11/23 06:33: WBC 7.1, RBC 4.22 L, Hgb 11.8 L, Hct 36.5 L, MCV 86.5, MCH 28.0, MCHC 32.3, RDW Std Deviation 45.7 H, RDW Coeff of Lara 14.4, Plt Count 277, MPV 8.6, Immature Gran % (Auto) 0.400, Neut % (Auto) 77.0 H, Lymph % (Auto) 7.3 L, [place] % (Auto) 13.7 H, Eos % (Auto) 0.8, Baso % (Auto) 0.8, Absolute Neuts (auto) 5.5, Absolute Lymphs (auto) 0.52 L, Nucleated RBC % 0, Differential Comment SCANNED 02/11/23 06:33: Sodium 132 L, Potassium 4.0, Chloride 101, Carbon Dioxide 25.0, Anion Gap 6, BUN 22 H, Creatinine 0.84, Estim Creat Clear Calc 85.95, Est GFR (MDRD) Af Amer 118, Est GFR (MDRD) Non-Af 98, BUN/Creatinine Ratio 26.2 H, Glucose 106, Calcium 9.8 Radiography Diagnostic Testing: Radiology Impression Chest X-Ray 02/10/23 18:50 IMPRESSION: 1. Normal x-ray examination of the chest. Electronically Signed: You Webber MD at 19:04 EDT , Chest/Abdomen/Pelvis CTA 02/10/23 19:25 IMPRESSION: Large bilateral pleural effusions with compressive atelectasis in the lower lobes. Extensive mediastinal and supraclavicular and left axillary adenopathy. Extensive retroperitoneal, mesenteric, and peripancreatic adenopathy as well as solid nodule within the spleen possibly metastatic. Postsurgical changes status post partial colectomy. Diffuse ileus with fecal retention in colon. Concentric thickening of the colon at the level of the anastomosis of the uncertain etiology. Cannot exclude recurrent or residual disease neoplasm versus inflammatory change or spasm. Clinical correlation recommended.. Electronically Signed: Deng Sheikh MD at 20:28 EDT , Physical Exam Narrative GENERAL: Frail looking HEENT: Atraumatic; normocephalic EYES; Anicteric, Normal Conjunctiva NECK; supple, normal thyroid, RESPIRATORY: Diminished to auscultation CARDIOVASCULAR: Regular S1 S2, GI: soft, normoactive bowel sounds, : No Renal angle tenderness; EXTREMITIES: No edema, no clubbing, MUSCULOSKELETAL: no muscle wasting NEURO: Awake; no lateralizing signs. SKIN: No Rash PSYCH; Flat affect Assessment & Plan Assessment/Plan (1) Abdominal pain: (2) Hypoxia: (3) Colon cancer: PLAN: Plan Patient is 62-year-old gentleman with history of metastatic colon cancer who presented with shortness of breath imaging studies obtained on admission did show Large bilateral pleural effusions with compressive atelectasis in the lower lobes. Extensive mediastinal and supraclavicular and left axillary adenopathy. Extensive retroperitoneal, mesenteric, and peripancreatic adenopathy as well as solid nodule within the spleen possibly metastatic. 1. Acute hypoxic respiratory insufficiency ? Secondary to metastatic colon cancer with large bilateral pleural effusion. Admitted to monitored bed. Consult placed to pulmonary medicine Case discussed with Dr. Ferguson plan is for patient to undergo diagnostic and therapeutic thoracocentesis by interventional radiology on 02/11/2023 2. Metastatic colon cancer ? Patient is seen by an oncologist at [place] per patient and the he is in the process of switching to [facility] oncology. Did adjust patient pain meds 3. Paroxysmal Afib Rate controlled on Lopressor also on systemic anticoagulation with Xarelto 4. Hyponatremia ? 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 DVT prophylaxis ? On Xarelto Time spent in the patient's overall evaluation,decision-making process, review of diagnostic data, adjustment of management, discussion with other providers, nursing nursing and ancillary staff involved in patient's care documentation,50 Minutes Advance planning; did discuss with the patient and family regarding advanced directives as well as CODE STATUS. Did explain the various scenarios involved ( FULL CODE, DNR CCA, DNR CCA with no intubation, and DNR CC and what each meant) patient elected to be DNR CCA no intubation. Order was placed. Time spent on discussion 18 minutes. Charges/Coding Visit Charges Inpatient E&M: 49827 Subs Hosp L3 Procedures Hospitalists Procedures: 09930 Advncd Care Plan 30 Min
--- NOTE | 2023-02-11 07:50 | CON.PCM.CC_ITS ---
Assessment & Plan Assessment/Plan (1) Abdominal pain: (2) Bilateral pleural effusion: PLAN: Plan RECOMMENDATIONS: 1. Proceed with ultrasound-guided thoracentesis. Hold Xarelto for now. 2. Pleural fluid study orders have been placed. 3. If the patient is stable from a respiratory perspective, he could be discharged home tomorrow with outpatient follow-up. 4. Consider referral to hospice care services. IMPRESSIONS: 1. Pleural effusions We were initially consulted to evaluate the patient due to pleural effusions, which could certainly represent an underlying malignant process. I would recommend that we proceed with diagnostic thoracentesis to definitively establish whether or not the effusions are malignant in etiology. Pleural fluid cytology will take several days before results are available. At the present time, the patient is maintaining appropriate oxygen saturations on room air. If the pleural effusion is malignant, the patient may ultimately require Pleurx catheter placement, depending on how quickly the effusion reaccumulates. This could be accomplished on an outpatient basis. We will check coags today and place order for ultrasound-guided thoracentesis. Pleural fluid study orders have been placed. 2. History of metastatic colon cancer/paroxysmal atrial fibrillation/GERD Complicates care, management, recovery and prognosis. Recommend holding Xarelto until thoracentesis is completed. This note was generated with MMIS dictation software. It may contain incorrect words, spelling, and punctuation that were not noted in checking the note before signing. HPI Consult Data Date of Consult: 02/11/23 HPI Narrative Reason for Consultation: Pleural effusion HPI Narrative: The patient is a 62-year-old male, with a history as outlined below, who presented to the emergency department via EMS on February 10 with abdominal and back pain. 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 We do not have any of the patient's oncology records for further clarification. However, according to the patient, the patient has apparently been treated in the past with overall disease progression noted. He also recently had a port infection, which required prolonged antimicrobial therapy. The patient was just evaluated in the emergency department on February 07 with right-sided abdominal pain of 7 weeks duration. The patient has a known history of atrial fibrillation on Xarelto. On presentation to the emergency department, the patient was noted to be afebrile and hemodynamically stable. He was documented to be saturating 98% on room air. Laboratory evaluation revealed no evidence of leukocytosis. Chemistry profile was notable for a sodium of 131, chloride of 97 and normal creatinine. Lactate was elevated at 2.2. CT abdomen/pelvis/chest demonstrated bilateral effusions with extensive mediastinal and supraclavicular adenopathy along with extensive retroperitoneal, mesenteric and peripancreatic adenopathy. There was concentric thickening of the colon at the level of the anastomosis of unclear etiology. The patient ultimately received supplemental IV fluid and pain medications. He was admitted to the progressive care unit. [facility] Medical History A-fib Colon cancer metastasized to multiple sites Sarcoma Home Medications oxycodone 5 mg capsule 5 mg PO Q4H PRN pain 8 days #30 caps 02/08/23 [Rx Last Taken Unknown] digoxin 125 mcg (0.125 mg) tablet 125 mcg PO QODAY 02/10/23 [History Last Taken Unknown] hydrocodone 10 mg-acetaminophen 325 mg tablet 1 tab PO Q4H PRN PRN Pain 02/10/23 [History Last Taken Unknown] metoprolol tartrate 50 mg tablet 50 mg PO DAILY 02/10/23 [History Last Taken Unknown] omeprazole 20 mg capsule,delayed release 40 mg PO DAILY 02/10/23 [History Last Taken Unknown] rivaroxaban 15 mg tablet (Xarelto) 15 mg PO DAILY 02/10/23 [History Last Taken Unknown] Allergy/AdvReac Type Severity Reaction Status Date / Time morphine AdvReac Nausea/Vom/ Verified 02/10/23 18:05 Diarrhea Social History Smoking Status: Never smoker ROS ROS Narrative 10 systems were reviewed with pertinent positives as noted in the HPI above. Physical Exam Const alert and oriented x3 General Appearance: ill appearing HEENT normocephalic and head/scalp atraumatic Eyes PERRL, EOMs intact bilaterally and conjunctivae normal Neck supple General: trachea midline Chest inspection of chest normal Resp Auscultation: diminished lung sounds Cardio S1 normal heart sound and S2 normal heart sound Rhythm: abnormal rhythm GI normal to inspection, nondistended, normoactive bowel sounds Extremity no clubbing, cyanosis or edema Skin no rashes or lesions noted Neuro CN's II-XII intact bilaterally and no focal motor deficits Psych Mood & Affect: flat affect Lab / Micro Data Result Diagrams: 02/11/23 06:33 02/11/23 06:33 Labs: Laboratory Results - last 24 hr 02/10/23 17:27: WBC 9.5, RBC 4.69, Hgb 13.1, Hct 40.1, MCV 85.5, MCH 27.9, MCHC 32.7, RDW Std Deviation 43.8, RDW Coeff of Lara 14.3, Plt Count 361, MPV 9.3, Immature Gran % (Auto) 0.500, Neut % (Auto) 80.7 H, Lymph % (Auto) 6.1 L, [place] % (Auto) 12.1 H, Eos % (Auto) 0.3, Baso % (Auto) 0.3, Absolute Neuts (auto) 7.7, Absolute Lymphs (auto) 0.58 L, Nucleated RBC % 0, Differential Comment SEE COMMENT, Platelet Estimate ADEQUATE, RBC Morphology NORM C+C, Anisocytosis RARE 02/10/23 17:27: Sodium 131 L, Potassium 3.9, Chloride 97 L, Carbon Dioxide 24.0, Anion Gap 10, BUN 19 H, Creatinine 0.91, Estim Creat Clear Calc 79.34, Est GFR (MDRD) Af Amer 108, Est GFR (MDRD) Non-Af 89, BUN/Creatinine Ratio 20.9 H, Glucose 115 H, Calcium 10.3 H, Total Bilirubin 0.60, AST 53 H, ALT 12 L, Alkaline Phosphatase 131 H, Troponin I High Sens 6, Total Protein 8.2, Albumin 2.4 L, Globulin 5.8 H, Albumin/Globulin Ratio 0.4 L 02/10/23 18:24: Lactic Acid 2.2 H* 02/10/23 20:55: Urine Color Yellow, Urine Clarity Clear, Urine pH 5.0, Ur Specific [place] 1.020, Urine Protein 100 H, Urine Glucose (UA) Normal, Urine Ketones 50 H, Urine Occult Blood 250 H, Urine Nitrite Negative, Urine Bilirubin Negative, Urine Urobilinogen Normal, Ur Leukocyte Esterase 25 H, Urine RBC 10-25 SEEN, Urine WBC 0-5 SEEN, Ur Squamous Epith Cells 0 SEEN, Urine Bacteria RARE, Urine Mucus 0 SEEN 02/10/23 22:10: Digoxin 0.45 L 02/10/23 22:10: Lactic Acid 1.9 02/11/23 06:33: WBC 7.1, RBC 4.22 L, Hgb 11.8 L, Hct 36.5 L, MCV 86.5, MCH 28.0, MCHC 32.3, RDW Std Deviation 45.7 H, RDW Coeff of Lara 14.4, Plt Count 277, MPV 8.6, Immature Gran % (Auto) 0.400, Neut % (Auto) 77.0 H, Lymph % (Auto) 7.3 L, [place] % (Auto) 13.7 H, Eos % (Auto) 0.8, Baso % (Auto) 0.8, Absolute Neuts (auto) 5.5, Absolute Lymphs (auto) 0.52 L, Nucleated RBC % 0, Differential Comment SCANNED 02/11/23 06:33: Sodium 132 L, Potassium 4.0, Chloride 101, Carbon Dioxide 25.0, Anion Gap 6, BUN 22 H, Creatinine 0.84, Estim Creat Clear Calc 85.95, Est GFR (MDRD) Af Amer 118, Est GFR (MDRD) Non-Af 98, BUN/Creatinine Ratio 26.2 H, Glucose 106, Calcium 9.8 Radiology Impression Chest X-Ray 02/10/23 18:50 IMPRESSION: 1. Normal x-ray examination of the chest. Electronically Signed: You Webber MD at 19:04 EDT , Chest/Abdomen/Pelvis CTA 02/10/23 19:25 IMPRESSION: Large bilateral pleural effusions with compressive atelectasis in the lower lobes. Extensive mediastinal and supraclavicular and left axillary adenopathy. Extensive retroperitoneal, mesenteric, and peripancreatic adenopathy as well as solid nodule within the spleen possibly metastatic. Postsurgical changes status post partial colectomy. Diffuse ileus with fecal retention in colon. Concentric thickening of the colon at the level of the anastomosis of the uncertain etiology. Cannot exclude recurrent or residual disease neoplasm versus inflammatory change or spasm. Clinical correlation recommended.. Electronically Signed: Deng Sheikh MD at 20:28 EDT , Charges/Coding Visit Charges Inpatient E&M: 90528 Init Hosp L3
--- NOTE | 2023-02-11 09:16 | US_ITS ---
PROCEDURE: ULTRASOUND GUIDED THORACENTESIS. DATE: February 11, 2023. INDICATION: Male, 62 years old. Right pleural effusion. PHYSICIAN: Gigi Manrique M.D. PROCEDURE: The risks, benefits, and alternatives to the procedure were explained to the patient. The specific risks of bleeding, infection, and pneumothorax requiring chest tube insertion were discussed and accepted. Written informed consent was obtained. Ultrasonographic evaluation of the right lower pleural space was carried out. An adequate pocket was identified. The patient was placed in the sitting, upright position. The overlying skin was prepped and draped in sterile fashion. 1% lidocaine was administered subcutaneously for local anesthesia. Under ultrasound guidance, a 5 Nepali thoracentesis needle/catheter system was advanced into the right posterior lower pleural fluid collection. Approximately 500 mL of lindsey-colored fluid was drained. The catheter was removed, and a sterile dressing was applied. A specimen was collected and sent to the laboratory for analysis, as requested by the referring clinician. The patient tolerated the procedure well. A chest x-ray was ordered. US/Thoracentesis W US IMPRESSION: Ultrasound-guided right thoracentesis. Electronically Signed: Gigi Manrique MD at 14:22 EDT ,
[2023-02-11 10:28] LABS: ALB/GLOB Ratio 0.4 RATIO (0.9-2.4); Globulin 5.4 g/dL (2.2-4.2); LDH 534 U/L (87-241); Protein, Total 7.6 g/dL (6.4-8.2)
[2023-02-11] MEDS: Metoprolol Tartrate 50 MG Tablet PO ×2 (10:37→20:58)
[2023-02-11] MEDS: Digoxin 125 MCG Tablet PO (10:39)
[2023-02-11] MEDS: Polyethylene Glycol 3350 17 GM PACKET PO (10:41)
[2023-02-11 10:42] LABS: Prothrombin Time (Protime)PT. 15.5 SECONDS (11.7-14.9)
[2023-02-11 10:43] LABS: International Normalized Ratio 1.2; Partial Thromboplast Time 44.6 Seconds (24.1-36.2)
[2023-02-11] MEDS: Lidocaine 2% (20 ml mdv) 20 ML Vial INFILT (13:49)
--- NOTE | 2023-02-11 14:00 | RAD_ITS ---
STUDY: X-RAY CHEST REASON FOR EXAM: Male, 62 years old. Post thora TECHNIQUE: AP inspiration and expiration views. COMPARISON: Comparison is made with prior study dated February 10, 2023. FINDINGS: A left-sided PICC line catheter is seen with the tip in the right atrium. The patient is status post right thoracentesis. There is no evidence of pneumothorax. Persistent infiltrate is seen in the posterior medial segment of the left lower lobe. RAD/Chest Insp/Exp 2 View IMPRESSION: Status post right thoracentesis. No evidence of pneumothorax. Electronically Signed: Gigi Manrique MD at 14:15 EDT ,
[2023-02-11 14:28] LABS: Cytology, Body Fluid / CSF SEE PATHOLOGY REPORT
[2023-02-11 14:48] LABS: Body Fluid Mononuclear WBC % 94.4 %; Body Fluid Polynuclear WBC # 0.018 10^3/uL; Body Fluid Polynuclear WBC % 5.6 %; Body Fluid Total Cells Counted 0.424 10^3/ul; White Blood Count/Body Fluid 0.318 10^3/uL
[2023-02-11 15:19] LABS: Protein, Body Fluid 4.4 g/dL (Not Establ.)
[2023-02-11] MEDS: HYDROmorphone 1 MG/ML Syringe IV ×3 (15:32→21:47)
[2023-02-11 15:40] LABS: Auto B Fluid Analyzer BKGD Ct COUNTS W/IN LIMITS (W/IN LIMITS); Source- Body Fluid THORACENTESIS
[2023-02-11 15:41] LABS: Appearance/Body Fluid SL CLDY; Color/Body Fluid LT YEL; Red Cell Count/Body Fluid 220 /mm3
[2023-02-11 15:52] LABS: Glucose, Body Fluid 111 mg/dL (40-70); LDH,Body Fluid 225 Units/l (Not Establ.)
--- NOTE | 2023-02-11 16:01 | CHAPLAIN ---
Type of Pastoral Visit _x__ Initial Visit ___ Follow-up Visit ___ On-call Visit ___ General Patient Visit ___ Spiritual Assessment ___ Family Conference ___ Bereavement ___ Rapid Response ___ Code Blue ___ Other (describe below) Pastoral Care Referral From ___ Patient ___ Family ___ Nurse ___ Physician ___ Theatre Program Director ___ Technical Support Specialist _x__ Other (describe below) Sacrament/Intervention _x__ Active listening ___ Anointing ___ Sikh ___ Bereavement ___ Communion ___ Felicia exploration ___ ___ Life review _x__ Prayer ___ Reconciliation ___ Sacrament of Sick _x__ Supportive presence ___ Wedding ___ Other (describe below) Pastoral Comments request to see patient came form [facility]; pt was found curled up in bed and awake; is at bedside but on the phone with family members; pt says that he is in pain but was just given pain meds; pt readily welcomed a prayer for support and stated that is where we can get our help for sure; pt states that his condition has been going on for more than a year and at times was hopeful for improvement; pt says that this time it was not getting better and came to hospital; pt affirms felicia in God and His help; pt has family that is supportive as well
[2023-02-11 16:15] LABS: Body Fluid QC Type(s) BF1Q,BF2Q; Lymphocytes 40 %; Macrophages 40 %; Mesothelial Cells 12 %; Neutrophil (Segs) 8 %
[2023-02-11] MEDS: Gabapentin 100 MG Capsule PO (17:47)
[2023-02-11] MEDS: Methocarbamol 750 MG Tablet PO (17:51)
[2023-02-12] VITALS (8 sets, daily range): BP systolic 130–145; BP diastolic 85–107; PULSE 55–114; RESP 16–18; TEMP 36.5–36.9; O2SAT 95–98
[2023-02-12] MEDS: HYDROcodone Bitartrate/Apap 5/325 Tablet PO ×4 (00:18→17:52)
[2023-02-12] MEDS: 0.9% Saline Lock 10 ML Syringe IV ×6 (01:00→22:31)
[2023-02-12] MEDS: HYDROmorphone 1 MG/ML Syringe IV ×7 (01:00→22:31)
[2023-02-12 06:20] LABS: Absolute Lymphocyte Count 0.46 X10^3/uL (0.83-4.51); Absolute Neutrophil Count 5.1 X10^3/uL (2.0-7.7); Basophil# 0.05 X10^3/uL; Basophil% 0.7 % (0-1); Eosinophil# 0.08 X10^3/uL; Eosinophils% 1.2 % (0-5); Hematocrit 37.2 % (40-54); Hemoglobin 12.2 g/dL (13.0-16.5); Lymphocyte # 0.46 X10^3/ul (0.83-4.51); Lymphocyte % 6.9 % (19-41); Mean Corp Hgb Conc 32.8 g/dL (32-36); Mean Corpuscular Hgb 28.4 pg (27.0-32.0); Mean Corpuscular Volume 86.7 fL (80-94); Mean Platelet Vol. 8.9 fl (6.2-12.0); Monocyte% 13.5 % (0-10); NRBC Flagged by Analyzer 0 % (0-5); Neutrophil # 5.14 X10^3/uL (2.7-7.7); POSITIVE DIFFERENTIAL YES; Platelet Count 278 K/mm3 (150-450); RBC Distribution Width CV 14.6 % (11.6-14.6); RBC Distribution Width SD 45.9 fl (35.1-43.9); Red Blood Count 4.29 M/mm3 (4.6-6.2); White Blood Count 6.7 K/mm3 (4.4-11.0)
[2023-02-12 06:21] LABS: Differential Indicated SCAN CRITERIA MET
[2023-02-12 06:51] LABS: Anion Gap 7 (5-15); BUN 20 mg/dL (7-18); Chloride 102 mmol/L (98-107); Creatinine, Serum 0.83 mg/dL (0.70-1.30); EST Glomerular Filtration Rate 99 mL/min (>60); Est Glom Filt Rate - Afr Amer 119 mL/min (>60); Estimated Creatinine Clearance 86.99 ml/min; Glucose 104 mg/dL (74-106); Potassium 3.9 mmol/L (3.5-5.1); Sodium Level 133 mmol/L (136-145)
[2023-02-12] MEDS: Gabapentin 100 MG Capsule PO ×3 (08:01→17:52)
--- NOTE | 2023-02-12 08:03 | PCM.PN.INT ---
Assessment & Plan Assessment/Plan (1) Abdominal pain: (2) Bilateral pleural effusion: PLAN: Plan RECOMMENDATIONS: 1. Await finalized pleural fluid analysis, including cytology. 2. The patient be discharged home from my perspective. 3. Recommend close interval follow-up with outpatient primary oncologist. 4. Consider referral to hospice care services. 5. We will sign off. Please call with any additional questions. IMPRESSIONS: 1. Pleural effusions We were initially consulted to evaluate the patient due to pleural effusions, which could certainly represent an underlying malignant process. Ultrasound-guided thoracentesis was ultimately performed with 500 mL of fluid removed from the right hemithorax. Pleural fluid cytology will take several days before results are available. At the present time, the patient is maintaining appropriate oxygen saturations on room air. If the pleural effusion is malignant, the patient may ultimately require Pleurx catheter placement, depending on how quickly the effusion reaccumulates. This could be accomplished on an outpatient basis. Per traditional Light's criteria, if at least one of the following three is fulfilled, the fluid would be considered an exudate: 1. Pleural fluid protein/serum protein ratio greater than 0.5 2. Pleural fluid LDH/serum LDH ratio greater than 0.6 3. Pleural fluid LDH greater than two thirds the upper limits of the laboratories normal serum LDH Based upon my review of the patient's pleural fluid analysis, along with serum LDH and total protein levels, the pleural fluid would be considered exudative in nature. At this time, I would recommend that the patient follow-up on an outpatient basis to review the results of his pleural fluid analysis, once cytology results are available. Otherwise, the patient should follow-up closely with his primary oncologist. 2. History of metastatic colon cancer/paroxysmal atrial fibrillation/GERD Complicates care, management, recovery and prognosis. Resume Xarelto. This note was generated with [employer] dictation software. It may contain incorrect words, spelling, and punctuation that were not noted in checking the note before signing. Subjective Subjective The patient was seen and examined at the bedside this morning. Events from the last 24 hours have been reviewed. The patient is currently afebrile, hemodynamically stable and maintaining appropriate oxygen saturations on room air. The patient underwent ultrasound-guided thoracentesis yesterday with 500 mL of fluid removed from the right hemithorax. The patient continues to report his concerns over pain. He is contemplating potential hospice care services. Objective Data Objective Data The patient's most recent lab work, culture data and imaging studies have all been personally reviewed. Vital Signs: Vital Signs Temp Pulse Resp BP Pulse Ox O2 Del Method 98.5 F 107 H 18 133/85 H 96 Room Air 02/12/23 03:10 02/12/23 03:10 02/12/23 03:10 02/12/23 03:10 02/12/23 03:10 02/12/23 03:10 Oxygen Delivery Method [1415] Room Air Oxygen Delivery Method [1358] Room Air Oxygen Delivery Method [1349] Room Air Oxygen Delivery Method [1341] Room Air Oxygen Delivery Method Room Air Weight: 154 lb 5.177 oz Body Mass Index (BMI) 23.4 Intake & Output: Intake and Output for Last 24 Hours 02/10/23 02/11/23 02/12/23 23:59 23:59 23:59 Intake Total 1000 / 1000 2168.33 / 2168.33 Output Total 1000 / 1000 Balance 1000 / 1000 1168.33 / 1168.33 Medical Nutrition Assessment Dietitian: Malnutrition Criteria Met Start: 02/11/23 11:16 Freq: Status: Active Protocol: Document 02/11/23 11:16 RMA (Rec: 02/11/23 11:16 RMA [id number]) Nutrition Malnutrition Evidence of Malnutrition Exists Yes Malnutrition (severe): Chronic Evidenced By Suboptimal Energy Intake ( Severe),Weight Loss (Severe), Physical Changes (Moderate) Clinical Problem Chronic Disease or Condition Related Malnutrition Etiology Severe protein-calorie malnutrition in the context of chronic disease related to inadequate oral intake and altered GI function Signs/Symptoms as evidenced by negligible oral intake since admit, PO meeting less than 50% estimated nutrition needs x 6 months, BMI 23.5, ~27% weight loss x past 12-18 months and moderate muscle wasting/fat depletion in the face and clavicle Status Active Problem Recommendation Dietitian Recommendations/Changes Continue regular diet as tolerated. Will add 240mL ensure clear TID w/ meals as tolerated. Advance ONS to ensure plus high protein as able when oral intake and tolerance better established with meals. Lab / Micro Data Attestation: I reviewed the patient's lab results. Result Diagrams: 02/12/23 05:57 02/12/23 05:57 Labs: Laboratory Results - last 24 hr 02/11/23 09:50: PT 15.5 H, INR 1.2, APTT 44.6 H 02/11/23 09:50: Lactate Dehydrogenase 534 H, Total Protein 7.6, Globulin 5.4 H, Albumin/Globulin Ratio 0.4 L 02/11/23 13:55: Fluid Total Protein 4.4 02/11/23 13:55: Fluid Glucose 111 H, Fluid LDH 225 02/11/23 13:55: Fluid Source THORACENTESIS, Fluid Color LT YEL, Fluid Appearance SL CLDY, Fluid WBC 0.318, Fluid RBC 220, Fluid Tot Cell Count 0.424, Fld Polynuclear WBCs # 0.018, Fld Polynuclear WBCs % 5.6, Fluid Mononuclear WBCs 0.300, Fld Mononuclear WBCs % 94.4, Fluid Neutrophils 8, Fluid Lymphocytes 40, Fluid Macrophages 40, Fld Mesothelial Cells 12, Fl Pathologist Comment May follow, Fluid Comment 2 SEE COMMENT 02/12/23 05:57: WBC 6.7, RBC 4.29 L, Hgb 12.2 L, Hct 37.2 L, MCV 86.7, MCH 28.4, MCHC 32.8, RDW Std Deviation 45.9 H, RDW Coeff of Lara 14.6, Plt Count 278, MPV 8.9, Immature Gran % (Auto) 0.700, Neut % (Auto) 77.0 H, Lymph % (Auto) 6.9 L, [place] % (Auto) 13.5 H, Eos % (Auto) 1.2, Baso % (Auto) 0.7, Absolute Neuts (auto) 5.1, Absolute Lymphs (auto) 0.46 L, Nucleated RBC % 0 02/12/23 05:57: Sodium 133 L, Potassium 3.9, Chloride 102, Carbon Dioxide 24.0, Anion Gap 7, BUN 20 H, Creatinine 0.83, Estim Creat Clear Calc 86.99, Est GFR (MDRD) Af Amer 119, Est GFR (MDRD) Non-Af 99, BUN/Creatinine Ratio 24.0 H, Glucose 104, Calcium 10.0 Radiography Diagnostic Testing: Radiology Impression Thoracentesis Ultrasound 02/11/23 09:16 IMPRESSION: Ultrasound-guided right thoracentesis. Electronically Signed: Gigi Manrique MD at 14:22 EDT , Chest X-Ray 02/11/23 14:00 IMPRESSION: Status post right thoracentesis. No evidence of pneumothorax. Electronically Signed: Gigi Manrique MD at 14:15 EDT , Physical Exam Const alert, oriented x3 and no apparent distress General Appearance: cooperative HEENT normocephalic and head/scalp atraumatic Eyes PERRL, EOMs intact bilaterally and conjunctivae normal Neck supple General: trachea midline Chest inspection of chest normal Resp Auscultation: diminished lung sounds Cardio S1 normal heart sound and S2 normal heart sound Rhythm: abnormal rhythm GI normal to inspection, nondistended, normoactive bowel sounds Extremity no clubbing, cyanosis or edema Skin no rashes or lesions noted Neuro CN's II-XII intact bilaterally and no focal motor deficits Psych Mood & Affect: flat affect Charges/Coding Visit Charges Inpatient E&M: 46496 Subs Hosp L2
[2023-02-12] MEDS: Senna Tablet 1 TABLET PO (09:46)
[2023-02-12] MEDS: Metoprolol Tartrate 50 MG Tablet PO ×2 (09:46→22:31)
[2023-02-12] MEDS: Polyethylene Glycol 3350 17 GM PACKET PO (09:46)
--- NOTE | 2023-02-12 10:07 | PCM.PN.HOSP ---
Reason for Visit Reason for Visit: Diagnoses Malignant neoplasm of colon, unspecified (02/11/23) Pleural effusion, not elsewhere classified (02/11/23) Hypoxemia (02/11/23) Unspecified abdominal pain (02/11/23) Abnormal weight loss (02/11/23) Personal history of other malignant neoplasm of large intestine (02/11/23) Personal history of malignant neoplasm of soft tissue (02/11/23) Subjective Subjective Patient underwent ultrasound-guided right thoracentesis by interventional radiology on 02/11/2023. Seen this morning his pain is much better controlled following adjustment of his pain regimen. Plan is for patient to be assessed for possible discharge with hospice Objective Data Objective Data Vital Signs: Vital Signs Temp Pulse Resp BP Pulse Ox O2 Del Method 98.4 F 78 16 138/98 H 97 Room Air 02/12/23 09:10 02/12/23 09:46 02/12/23 09:10 02/12/23 09:10 02/12/23 09:10 02/12/23 09:10 Oxygen Delivery Method [1415] Room Air Oxygen Delivery Method [1358] Room Air Oxygen Delivery Method [1349] Room Air Oxygen Delivery Method [1341] Room Air Oxygen Delivery Method Room Air Weight: 70 kg Body Mass Index (BMI) 23.4 Intake & Output: Intake and Output for Last 24 Hours 02/10/23 02/11/23 02/12/23 23:59 23:59 23:59 Intake Total 1000 / 1000 2168.33 / 2168.33 Output Total 1000 / 1000 Balance 1000 / 1000 1168.33 / 1168.33 Medical Nutrition Assessment Dietitian: Malnutrition Criteria Met Start: 02/11/23 11:16 Freq: Status: Active Protocol: Document 02/11/23 11:16 RMA (Rec: 02/11/23 11:16 RMA [id number]) Nutrition Malnutrition Evidence of Malnutrition Exists Yes Malnutrition (severe): Chronic Evidenced By Suboptimal Energy Intake ( Severe),Weight Loss (Severe), Physical Changes (Moderate) Clinical Problem Chronic Disease or Condition Related Malnutrition Etiology Severe protein-calorie malnutrition in the context of chronic disease related to inadequate oral intake and altered GI function Signs/Symptoms as evidenced by negligible oral intake since admit, PO meeting less than 50% estimated nutrition needs x 6 months, BMI 23.5, ~27% weight loss x past 12-18 months and moderate muscle wasting/fat depletion in the face and clavicle Status Active Problem Recommendation Dietitian Recommendations/Changes Continue regular diet as tolerated. Will add 240mL ensure clear TID w/ meals as tolerated. Advance ONS to ensure plus high protein as able when oral intake and tolerance better established with meals. Lab / Micro Data Result Diagrams: 02/12/23 05:57 02/12/23 05:57 Labs: Laboratory Results - last 24 hr 02/11/23 09:50: PT 15.5 H, INR 1.2, APTT 44.6 H 02/11/23 09:50: Lactate Dehydrogenase 534 H, Total Protein 7.6, Globulin 5.4 H, Albumin/Globulin Ratio 0.4 L 02/11/23 13:55: Fluid Total Protein 4.4 02/11/23 13:55: Fluid Glucose 111 H, Fluid LDH 225 02/11/23 13:55: Fluid Source THORACENTESIS, Fluid Color LT YEL, Fluid Appearance SL CLDY, Fluid WBC 0.318, Fluid RBC 220, Fluid Tot Cell Count 0.424, Fld Polynuclear WBCs # 0.018, Fld Polynuclear WBCs % 5.6, Fluid Mononuclear WBCs 0.300, Fld Mononuclear WBCs % 94.4, Fluid Neutrophils 8, Fluid Lymphocytes 40, Fluid Macrophages 40, Fld Mesothelial Cells 12, Fl Pathologist Comment May follow, Fluid Comment 2 SEE COMMENT 02/12/23 05:57: WBC 6.7, RBC 4.29 L, Hgb 12.2 L, Hct 37.2 L, MCV 86.7, MCH 28.4, MCHC 32.8, RDW Std Deviation 45.9 H, RDW Coeff of Lara 14.6, Plt Count 278, MPV 8.9, Immature Gran % (Auto) 0.700, Neut % (Auto) 77.0 H, Lymph % (Auto) 6.9 L, [place] % (Auto) 13.5 H, Eos % (Auto) 1.2, Baso % (Auto) 0.7, Absolute Neuts (auto) 5.1, Absolute Lymphs (auto) 0.46 L, Nucleated RBC % 0 02/12/23 05:57: Sodium 133 L, Potassium 3.9, Chloride 102, Carbon Dioxide 24.0, Anion Gap 7, BUN 20 H, Creatinine 0.83, Estim Creat Clear Calc 86.99, Est GFR (MDRD) Af Amer 119, Est GFR (MDRD) Non-Af 99, BUN/Creatinine Ratio 24.0 H, Glucose 104, Calcium 10.0 Radiography Diagnostic Testing: Radiology Impression Thoracentesis Ultrasound 02/11/23 09:16 IMPRESSION: Ultrasound-guided right thoracentesis. Electronically Signed: Giig Manrique MD at 14:22 EDT , Chest X-Ray 02/11/23 14:00 IMPRESSION: Status post right thoracentesis. No evidence of pneumothorax. Electronically Signed: Gigi Manrique MD at 14:15 EDT , Physical Exam Narrative GENERAL: Frail looking HEENT: Atraumatic; normocephalic EYES; Anicteric, Normal Conjunctiva NECK; supple, normal thyroid, RESPIRATORY: Diminished to auscultation CARDIOVASCULAR: Regular S1 S2, GI: soft, normoactive bowel sounds, : No Renal angle tenderness; EXTREMITIES: No edema, no clubbing, MUSCULOSKELETAL: no muscle wasting NEURO: Awake; no lateralizing signs. SKIN: No Rash PSYCH; Flat affect Assessment & Plan Assessment/Plan (1) Abdominal pain: (2) Hypoxia: (3) Colon cancer: PLAN: Plan Patient is 62-year-old gentleman with history of metastatic colon cancer who presented with shortness of breath imaging studies obtained on admission did show Large bilateral pleural effusions with compressive atelectasis in the lower lobes. Extensive mediastinal and supraclavicular and left axillary adenopathy. Extensive retroperitoneal, mesenteric, and peripancreatic adenopathy as well as solid nodule within the spleen possibly metastatic. 1. Acute hypoxic respiratory insufficiency ? Secondary to metastatic colon cancer with large bilateral pleural effusion. Admitted to monitored bed. Consult placed to pulmonary medicine Case discussed with Dr. Ferguson plan is for patient to undergo diagnostic and therapeutic thoracocentesis by interventional radiology on 02/11/2023 02/12/2023;Patient underwent ultrasound-guided right thoracentesis by interventional radiology on 02/11/2023. Seen this morning his pain is much better controlled following adjustment of his pain regimen. Plan is for patient to be assessed for possible discharge with hospice 2. Metastatic colon cancer ? Patient is seen by an oncologist at [place] per patient and the he is in the process of switching to [facility] oncology. Did adjust patient pain meds 3. Paroxysmal Afib Rate controlled on Lopressor also on systemic anticoagulation with Xarelto 4. Hyponatremia ? 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 DVT prophylaxis ? On Xarelto Time spent in the patient's overall evaluation,decision-making process, review of diagnostic data, adjustment of management, discussion with other providers, nursing nursing and ancillary staff involved in patient's care documentation, 35 Minutes Charges/Coding Visit Charges Inpatient E&M: 60258 Subs Hosp L2
--- NOTE | 2023-02-12 11:55 | CASEMGMT ---
RN EUSEBIO Face to Face with patient for initial transition planning/care coordination assessment. RN CM introduced self and role at [facility]. Patient lying in bed, alert and oriented, at bedside. Patient willing to participate in assessment and is able to answer all questions appropriately. Care providers, pharmacy, and demographics verified. Patient wishes to discharge home with hospice and prefers [facility]. Patient states he has no further needs or concerns at this time. SW notified regarding hospice referral. CM to follow for discharge planning needs that may arise. PCP: [facility] Specialists: Julien, utility tractor operator; Humberto surgeon; Devorah, oncologist Preferred Pharmacy: [facility] Insurance: [facility] [place] Prescription Benefit: none Living Will/HPOA: none LNOK: Living Arrangements: Patient lives with in a 2 story home with bed and bath on first floor. Transportation: driving service DME/HHC: Patient denies DME In the home. No previous HHC or SNF. Disposition Plan: Patient to discharge home with hospice. Amirah ENAMORADO, RN, CM
[2023-02-12 13:30] LABS: Pathologist Comment/Body Fluid Reviewed
--- NOTE | 2023-02-12 15:24 | CASEMGMT ---
SW was informed by RN EUSEBIO that patient and his would like a referral made to [facility] in [facility]. SW did some research and it is actually called [facility] and their inpatient hospice unit is [facility]. SW called [facility] and made a referral as well as faxed information. SW will contact them tomorrow when patient is being discharged so they can send a nurse out to patient's home. ([facility]- phone: and fax: [phone]) Annette THRASHER
[2023-02-13] MEDS: HYDROcodone Bitartrate/Apap 5/325 Tablet PO ×2 (00:35→06:01)
[2023-02-13] MEDS: 0.9% Saline Lock 10 ML Syringe IV ×4 (04:19→10:45)
[2023-02-13 04:20] VITALS: BP 156/82; PULSE 112; RESP 16; TEMP 37.3; O2SAT 99
[2023-02-13] MEDS: HYDROmorphone 1 MG/ML Syringe IV ×3 (04:21→10:45)
[2023-02-13 04:31] VITALS: O2SAT 97
[2023-02-13 06:40] LABS: Absolute Lymphocyte Count 0.78 X10^3/uL (0.83-4.51); Absolute Neutrophil Count 5.9 X10^3/uL (2.0-7.7); Basophil# 0.07 X10^3/uL; Basophil% 0.9 % (0-1); Eosinophil# 0.09 X10^3/uL; Eosinophils% 1.1 % (0-5); Hematocrit 38.5 % (40-54); Hemoglobin 12.5 g/dL (13.0-16.5); Lymphocyte # 0.78 X10^3/ul (0.83-4.51); Lymphocyte % 9.9 % (19-41); Mean Corp Hgb Conc 32.5 g/dL (32-36); Mean Corpuscular Hgb 27.8 pg (27.0-32.0); Mean Corpuscular Volume 85.7 fL (80-94); Monocyte# 1.01 X10^3/uL; Monocyte% 12.8 % (0-10); NRBC Flagged by Analyzer 0 % (0-5); Neutrophil % 74.8 % (47-70); Platelet Count 314 K/mm3 (150-450); RBC Distribution Width CV 14.5 % (11.6-14.6); RBC Distribution Width SD 44.6 fl (35.1-43.9); Red Blood Count 4.49 M/mm3 (4.6-6.2); White Blood Count 7.9 K/mm3 (4.4-11.0)
[2023-02-13 07:07] LABS: Anion Gap 8 (5-15); BUN 18 mg/dL (7-18); BUN/Creat Ratio 22.7 RATIO (10-20); Calcium,Total 10.3 mg/dL (8.5-10.1); Chloride 101 mmol/L (98-107); Creatinine, Serum 0.79 mg/dL (0.70-1.30); EST Glomerular Filtration Rate 104 mL/min (>60); Est Glom Filt Rate - Afr Amer 126 mL/min (>60); Estimated Creatinine Clearance 91.39 ml/min; Glucose 100 mg/dL (74-106); Potassium 4.1 mmol/L (3.5-5.1); Sodium Level 134 mmol/L (136-145)
[2023-02-13 07:45] VITALS: BP 140/108; PULSE 126; RESP 16; TEMP 36.7; O2SAT 97
[2023-02-13 07:46] VITALS: PULSE 127
[2023-02-13] MEDS: Metoprolol Tartrate 50 MG Tablet PO (07:46)
[2023-02-13] MEDS: Digoxin 125 MCG Tablet PO (07:46)
[2023-02-13] MEDS: Senna Tablet 1 TABLET PO (07:46)
[2023-02-13] MEDS: Polyethylene Glycol 3350 17 GM PACKET PO (07:46)
[2023-02-13] MEDS: Gabapentin 100 MG Capsule PO (07:50)
--- NOTE | 2023-02-13 07:50 | PN.HOSP_ITS ---
Reason for Visit Reason for Visit: Diagnoses Malignant neoplasm of colon, unspecified (02/11/23) Pleural effusion, not elsewhere classified (02/11/23) Hypoxemia (02/11/23) Unspecified abdominal pain (02/11/23) Abnormal weight loss (02/11/23) Personal history of other malignant neoplasm of large intestine (02/11/23) Personal history of malignant neoplasm of soft tissue (02/11/23) Subjective Subjective Plan is for patient to be discharged home with hospice Objective Data Objective Data Vital Signs: Vital Signs Temp Pulse Resp BP Pulse Ox O2 Del Method 99.1 F 112 H 16 156/82 H 97 Room Air 02/13/23 04:20 02/13/23 04:20 02/13/23 04:20 02/13/23 04:20 02/13/23 04:31 02/13/23 04:31 Oxygen Delivery Method [1415] Room Air Oxygen Delivery Method [1358] Room Air Oxygen Delivery Method [1349] Room Air Oxygen Delivery Method [1341] Room Air Oxygen Delivery Method Room Air Weight: 70 kg Body Mass Index (BMI) 23.4 Intake & Output: Intake and Output for Last 24 Hours 02/11/23 02/12/23 02/13/23 23:59 23:59 23:59 Intake Total 2168.33 / 2168.33 520 / 520 Output Total 1000 / 1000 Balance 1168.33 / 1168.33 520 / 520 Medical Nutrition Assessment Dietitian: Malnutrition Criteria Met Start: 02/11/23 11:16 Freq: Status: Active Protocol: Document 02/11/23 11:16 RMA (Rec: 02/11/23 11:16 RMA [id number]) Nutrition Malnutrition Evidence of Malnutrition Exists Yes Malnutrition (severe): Chronic Evidenced By Suboptimal Energy Intake ( Severe),Weight Loss (Severe), Physical Changes (Moderate) Clinical Problem Chronic Disease or Condition Related Malnutrition Etiology Severe protein-calorie malnutrition in the context of chronic disease related to inadequate oral intake and altered GI function Signs/Symptoms as evidenced by negligible oral intake since admit, PO meeting less than 50% estimated nutrition needs x 6 months, BMI 23.5, ~27% weight loss x past 12-18 months and moderate muscle wasting/fat depletion in the face and clavicle Status Active Problem Recommendation Dietitian Recommendations/Changes Continue regular diet as tolerated. Will add 240mL ensure clear TID w/ meals as tolerated. Advance ONS to ensure plus high protein as able when oral intake and tolerance better established with meals. Lab / Micro Data Result Diagrams: 02/13/23 06:11 02/13/23 06:11 Labs: Laboratory Results - last 24 hr 02/11/23 13:55: Fl Pathologist Comment Reviewed 02/13/23 06:11: WBC 7.9, RBC 4.49 L, Hgb 12.5 L, Hct 38.5 L, MCV 85.7, MCH 27.8, MCHC 32.5, RDW Std Deviation 44.6 H, RDW Coeff of Lara 14.5, Plt Count 314, MPV 9.0, Immature Gran % (Auto) 0.500, Neut % (Auto) 74.8 H, Lymph % (Auto) 9.9 L, [place] % (Auto) 12.8 H, Eos % (Auto) 1.1, Baso % (Auto) 0.9, Absolute Neuts (auto) 5.9, Absolute Lymphs (auto) 0.78 L, Nucleated RBC % 0 02/13/23 06:11: Sodium 134 L, Potassium 4.1, Chloride 101, Carbon Dioxide 25.0, Anion Gap 8, BUN 18, Creatinine 0.79, Estim Creat Clear Calc 91.39, Est GFR (MDRD) Af Amer 126, Est GFR (MDRD) Non-Af 104, BUN/Creatinine Ratio 22.7 H, Glucose 100, Calcium 10.3 H Micro: Microbiology 02/11/23 13:55 Fluid - Pleural (Lung) Gram Stain - Final 02/11/23 13:55 Fluid - Pleural (Lung) Body Fluid Culture - Preliminary No growth-Final to follow Physical Exam Narrative GENERAL: Frail looking HEENT: Atraumatic; normocephalic EYES; Anicteric, Normal Conjunctiva NECK; supple, normal thyroid, RESPIRATORY: Diminished to auscultation CARDIOVASCULAR: Regular S1 S2, GI: soft, normoactive bowel sounds, : No Renal angle tenderness; EXTREMITIES: No edema, no clubbing, MUSCULOSKELETAL: no muscle wasting NEURO: Awake; no lateralizing signs. SKIN: No Rash PSYCH; Flat affect Assessment & Plan Assessment/Plan (1) Abdominal pain: (2) Hypoxia: (3) Colon cancer: PLAN: Plan Patient is 62-year-old gentleman with history of metastatic colon cancer who presented with shortness of breath imaging studies obtained on admission did show Large bilateral pleural effusions with compressive atelectasis in the lower lobes. Extensive mediastinal and supraclavicular and left axillary adenopathy. Extensive retroperitoneal, mesenteric, and peripancreatic adenopathy as well as solid nodule within the spleen possibly metastatic. 1. Acute hypoxic respiratory insufficiency ? Secondary to metastatic colon cancer with large bilateral pleural effusion. Admitted to monitored bed. Consult placed to pulmonary medicine Case discussed with Dr. Ferguson plan is for patient to undergo diagnostic and therapeutic thoracocentesis by interventional radiology on 02/11/2023 02/12/2023;Patient underwent ultrasound-guided right thoracentesis by interventional radiology on 02/11/2023. Seen this morning his pain is much better controlled following adjustment of his pain regimen. Plan is for patient to be assessed for possible discharge with hospice 2. Metastatic colon cancer ? Patient is seen by an oncologist at [place] per patient and the he is in the process of switching to [facility] oncology. Did adjust patient pain meds 3. Paroxysmal Afib Rate controlled on Lopressor also on systemic anticoagulation with Xarelto 4. Hyponatremia ? 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 DVT prophylaxis ? On Xarelto 6. ?Severe protein-calorie malnutrition -in the context of chronic disease related to inadequate oral intake and altered GI function as evidenced by negligible oral intake since admit, PO meeting less than 50% estimated nutrition needs x 6 months, BMI 23.5, ~27% weight loss x pas t 12-18 months and moderate muscle wasting/fat depletion in the face and clavicle. Continue regular diet as tolerated. Will add 240mL ensure clear TID w/ meals as tolerated. Advance ONS to ensure plus high protein as able when oral intake and tolerance better established with meals. Time spent in the patient's overall evaluation,decision-making process, review of diagnostic data, adjustment of management, discussion with other providers, nursing nursing and ancillary staff involved in patient's care documentation, 35 Minutes Charges/Coding Visit Charges Inpatient E&M: 21784 Subs Hosp L2
--- NOTE | 2023-02-13 09:09 | CASEMGMT ---
FLACO spoke with Bhavin from [facility] and he would like d/c to be facilitated as soon as possible as they have nurses available. RN spoke with physician already and has initiated this. SW spoke with patient and his and they have gone back and forth on transportation home. Thoughts were ambulance ride home vs their son vs wheelchair van. They decided to have their son transport patient. FLACO told patient and his to have their son make his way to [facility] now. FLACO called Bhavin at [facility] and let him know. FLACO also let Bhavin know that per patient's patient cannot tolerate Morphine. FLACO will get orders sent to [facility] as soon as physician completes them. Plan: d/c home with [facility] out of [facility]. Family will transport patient and his . Annette THRASHER
--- NOTE | 2023-02-13 09:20 | DS.PCM_ITS ---
Providers Date of Admission: 02/11/23 Date of Discharge: 02/13/23 Primary Care Physician: Dr. 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 / Pulmonary Medicine Routine Consulting Provider: Pulmonary Medicine edilberto Borger Reason for Consult: management for effusions EMERGENT Consult: No MD Notified: Yes Date Notified: 02/11/23 Time Notified: 06:48 Method of Notification: Text Reason For Visit: HYPOXIA, PLEURAL EFFUSION, MET COLON CANCER Diagnosis Discharge Diagnosis (1) Abdominal pain: Status: Acute Code(s): R10.9 - Unspecified abdominal pain (2) Hypoxia: Status: Acute Code(s): R09.02 - Hypoxemia (3) Colon cancer: Status: Acute Code(s): C18.9 - Malignant neoplasm of colon, unspecified Plan Patient is 62-year-old gentleman with history of metastatic colon cancer who presented with shortness of breath imaging studies obtained on admission did show Large bilateral pleural effusions with compressive atelectasis in the lower lobes. Extensive mediastinal and supraclavicular and left axillary adenopathy. Extensive retroperitoneal, mesenteric, and peripancreatic adenopathy as well as solid nodule within the spleen possibly metastatic. 1. Acute hypoxic respiratory insufficiency ? Secondary to metastatic colon cancer with large bilateral pleural effusion. Admitted to monitored bed. Consult placed to pulmonary medicine Case discussed with Dr. Ferguson plan is for patient to undergo diagnostic and therapeutic thoracocentesis by interventional radiology on 02/11/2023 02/12/2023;Patient underwent ultrasound-guided right thoracentesis by interventional radiology on 02/11/2023. Seen this morning his pain is much better controlled following adjustment of his pain regimen. Plan is for patient to be assessed for possible discharge with hospice 2. Metastatic colon cancer ? Patient is seen by an oncologist at [facility] per patient and the he is in the process of switching to [facility] oncology. Did adjust patient pain meds 3. Paroxysmal Afib Rate controlled on Lopressor also on systemic anticoagulation with Xarelto 4. Hyponatremia ? 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 DVT prophylaxis ? On Xarelto 6. ?Severe protein-calorie malnutrition -in the context of chronic disease related to inadequate oral intake and altered GI function as evidenced by negligible oral intake since admit, PO meeting less than 50% estimated nutrition needs x 6 months, BMI 23.5, ~27% weight loss x past 12-18 months and moderate muscle wasting/fat depletion in the face and clavicle. Continue regular diet as tolerated. Will add 240mL ensure clear TID w/ meals as tolerated. Advance ONS to ensure plus high protein as able when oral intake and tolerance better established with meals. Time spent in the patient's overall evaluation,decision-making process, review of diagnostic data, adjustment of management, discussion with other providers, nursing nursing and ancillary staff involved in patient's care documentation, 35 Minutes Medications at Discharge Home Medications oxycodone 5 mg capsule 5 mg PO Q4H PRN pain 8 days #30 caps 02/08/23 digoxin 125 mcg (0.125 mg) tablet 125 mcg PO QODAY 02/10/23 hydrocodone 10 mg-acetaminophen 325 mg tablet 1 tab PO Q4H PRN PRN Pain 02/10/23 metoprolol tartrate 50 mg tablet 50 mg PO DAILY 02/10/23 omeprazole 20 mg capsule,delayed release 40 mg PO DAILY 02/10/23 rivaroxaban 15 mg tablet (Xarelto) 15 mg PO DAILY 02/10/23 Hospital Course Summary of Care Provided Minutes Spent on Discharge: 35 Physical Exam Narrative GENERAL: Frail looking HEENT: Atraumatic; normocephalic EYES; Anicteric, Normal Conjunctiva NECK; supple, normal thyroid, RESPIRATORY: Diminished to auscultation CARDIOVASCULAR: Regular S1 S2, GI: soft, normoactive bowel sounds, : No Renal angle tenderness; EXTREMITIES: No edema, no clubbing, MUSCULOSKELETAL: no muscle wasting NEURO: Awake; no lateralizing signs. SKIN: No Rash PSYCH; Flat affect Medical Records Data Medical Nutrition Assessment Dietitian: Malnutrition Criteria Met Start: 02/11/23 11:16 Freq: Status: Active Protocol: Document 02/11/23 11:16 RMA (Rec: 02/11/23 11:16 RMA [id number]) Nutrition Malnutrition Evidence of Malnutrition Exists Yes Malnutrition (severe): Chronic Evidenced By Suboptimal Energy Intake ( Severe),Weight Loss (Severe), Physical Changes (Moderate) Clinical Problem Chronic Disease or Condition Related Malnutrition Etiology Severe protein-calorie malnutrition in the context of chronic disease related to inadequate oral intake and altered GI function Signs/Symptoms as evidenced by negligible oral intake since admit, PO meeting less than 50% estimated nutrition needs x 6 months, BMI 23.5, ~27% weight loss x past 12-18 months and moderate muscle wasting/fat depletion in the face and clavicle Status Active Problem Recommendation Dietitian Recommendations/Changes Continue regular diet as tolerated. Will add 240mL ensure clear TID w/ meals as tolerated. Advance ONS to ensure plus high protein as able when oral intake and tolerance better established with meals. Weight / BMI Weight Weight: 70 kg Body Mass Index (BMI) 23.4 ABG / Lab / Microbiology Data Result Diagrams: 02/13/23 06:11 02/13/23 06:11 Laboratory: Laboratory Results - last 24 hr 02/11/23 13:55: Fl Pathologist Comment Reviewed 02/13/23 06:11: WBC 7.9, RBC 4.49 L, Hgb 12.5 L, Hct 38.5 L, MCV 85.7, MCH 27.8, MCHC 32.5, RDW Std Deviation 44.6 H, RDW Coeff of Lara 14.5, Plt Count 314, MPV 9.0, Immature Gran % (Auto) 0.500, Neut % (Auto) 74.8 H, Lymph % (Auto) 9.9 L, [place] % (Auto) 12.8 H, Eos % (Auto) 1.1, Baso % (Auto) 0.9, Absolute Neuts (auto) 5.9, Absolute Lymphs (auto) 0.78 L, Nucleated RBC % 0 02/13/23 06:11: Sodium 134 L, Potassium 4.1, Chloride 101, Carbon Dioxide 25.0, Anion Gap 8, BUN 18, Creatinine 0.79, Estim Creat Clear Calc 91.39, Est GFR (MDRD) Af Amer 126, Est GFR (MDRD) Non-Af 104, BUN/Creatinine Ratio 22.7 H, Glucose 100, Calcium 10.3 H Microbiology: Microbiology 02/11/23 13:55 Fluid - Pleural (Lung) Gram Stain - Final 02/11/23 13:55 Fluid - Pleural (Lung) Body Fluid Culture - Preliminary No growth-Final to follow D/C Instructions Discharge Diet: No restrictions Discharge Activity: Return to Normal Activity Call your doctor if you observe: Fever of 101 or Higher, Shortness of breath, Fainting spells and Chest pain Meaningful Use Info Meaningful Use Diagnoses (Choose all that apply): None applicable Discharge Plan Admission Admit Date/Time: 02/11/23 09:14 Attending Provider: Tarik Bravo Primary Care Provider: Parish Maravilla Consulting Providers: Aris Miguel ; Daquan Ferguson ; Ambrosio De Anda ; Tono Phillips ; Dona Bautista NP ; João Jeff Instructions Patient Instructions: YOSSI RN Thoracentesis Dc Discharge Orders/Prescriptions Prescriptions: Continued oxycodone 5 mg capsule 5 mg PO Q4H PRN (Reason: pain) 8 Days Qty: 30 0RF hydrocodone-acetaminophen 10-325 mg tablet 1 tab PO Q4H PRN PRN (Reason: Pain) Label Comments: TAKE TWO TABLETS BY MOUTH EVERY 4 HOURS MAX EIGHT TABLETS A DAY metoprolol tartrate 50 mg tablet 50 mg PO DAILY Label Comments: TAKE ONE TABLET BY MOUTH TWICE DAILY omeprazole 20 mg capsule,delayed release(DR/EC) 40 mg PO DAILY Label Comments: TAKE TWO CAPSULES BY MOUTH EVERY DAY digoxin 125 mcg (0.125 mg) tablet 125 mcg PO QODAY Label Comments: TAKE ONE TABLET BY MOUTH EVERY DAY Xarelto 15 mg tablet 15 mg PO DAILY Label Comments: TAKE ONE TABLET BY MOUTH IN THE EVENING Referrals / Follow Up: Parish Maravilla MD [Primary Care Provider] - In 1 Week Disposition Disposition (needs filled in before D/C Order can be placed): Hospice in Home Charges/Coding Visit Charges Inpatient E&M: 43285 Disch Hosp >30min
--- NOTE | 2023-02-13 09:42 | CASEMGMT ---
[facility]O sent d/c orders to [facility]. Annette THRASHER
--- NOTE | 2023-02-13 09:58 | PHA.DC.MR ---
Pharmacy Service has performed discharge medication reconciliation for this patient. The patient's discharge medication list was reviewed for discrepancies and discrepancies were resolved. Home Medications oxycodone 5 mg capsule 5 mg PO Q4H PRN pain 8 days #30 caps 02/08/23 digoxin 125 mcg (0.125 mg) tablet 125 mcg PO QODAY 02/10/23 hydrocodone 10 mg-acetaminophen 325 mg tablet 1 tab PO Q4H PRN PRN Pain 02/10/23 metoprolol tartrate 50 mg tablet 50 mg PO DAILY 02/10/23 omeprazole 20 mg capsule,delayed release 40 mg PO DAILY 02/10/23 rivaroxaban 15 mg tablet (Xarelto) 15 mg PO DAILY 02/10/23
--- NOTE | 2023-02-13 11:20 | CASEMGMT ---
[facility] called [facility] and let Anali know patient and his family just left the hospital. Annette Johnson OPTOMETRY ASSISTANT ANNA MARIE
== END 2023-02-13 11:01 | disposition hospice, home (50) | DRG 186 ==
LOC: ED 21:48 → PCU 22:20
PROVIDERS: Internal Medicine Critical Care Medicine; Admitting Provider Hospitalist; Emergency Provider Emergency Medicine; PCP Family Medicine; Visit Provider Internal Medicine
DX: J90 Pleural effusion, not elsewhere classified (principal); E43 Unspecified severe protein-calorie malnutrition; E22.2 Syndrome of inappropriate secretion of antidiuretic hormone; C18.9 Malignant neoplasm of colon, unspecified; J98.11 Atelectasis; I48.0 Paroxysmal atrial fibrillation; Z92.21 Personal history of antineoplastic chemotherapy; R63.4 Abnormal weight loss; Z79.891 Long term (current) use of opiate analgesic; G89.29 Other chronic pain; R09.02 Hypoxemia; R59.1 Generalized enlarged lymph nodes; Z79.01 Long term (current) use of anticoagulants; Z68.23 Body mass index [BMI] 23.0-23.9, adult
CPT/HCPCS: 32555; 36415; 71045; 71046; 71275; 74174; 80048; 80053; 80162; 81001; 82945; 83605; 83615; 84156; 84157; 84484; 85025; 85610; 85730; 87070; 87075; 87205; 88108; 88305; 88313; 89050; 93005; 94667; 94668; 97802; 99252; 99285; J7030; Q9967; A4216; G0463; J2405